=== PATIENT | female | born 1955 | race Caucasian/White ===

== ENCOUNTER → 2023-12-02 15:00 | Outpatient (BNV) | payer MEDICARE, SELFPAY | PROVIDERS: PCP Internal Medicine; Referring Provider Internal Medicine; Visit Provider Internal Medicine | DX: D69.6 Thrombocytopenia, unspecified (principal); D64.9 Anemia, unspecified | CPT/HCPCS: 99204; 99214; G2211 ==

== ENCOUNTER 2024-02-06 11:45 | Day surgery (SDC) | payer MEDICARE, SELFPAY ==
--- OUTSIDE RECORDS SUMMARY | 2024-02-05 19:26 | XMS_ITS | Continuity of Care Document ---
Author Organization [facility] Address [address] [place] [address]- Care Team Providers Care Electron Gun Inspector Name Role Phone Josias Estrada MD Primary Care Physician Encounter [facility] [id number] Date(s): 10/16/23 - 01/30/24 [facility] [address] [place] [id number] Discharge Disposition: A-D/C Home Attending Physician: Gavin Lua MD Admitting Physician: Gavin Lua MD Referring Physician: Josias Estrada MD Encounter Type: Disch Recurring OP Allergies, Adverse Reactions, Alerts Substance Criticality Severity Reaction Reaction Severity Status amoxicillin Active Medications albuterol CFC free 90 mcg/inh inhalation aerosol 2, puffs, Inhalation, 4 times a day, PRN, # 18 Gm, Refills 0, Tot. Refills 0, Maintenance, 01/29/24 1:34:00 PM EST, Aerosol, Route to Pharmacy Electronically, [id number], [facility]/pharmacy #[id number], 157, cm, 01/29/24 11:23:00 EST, Height, 89.5, kg, 01/29/24 11:23:00 EST, Dry Weight Start Date: 01/29/24 Status: Ordered Quantity: 18.0 Unit: g Repeat number: 1 amLODIPine 5 mg oral tablet 10 mg, 2, tablet, By Mouth, Daily, # 30 tablet, Refills 0, Maintenance, 06/22/18 10:03:28 AM EDT Start Date: 4/28/19 Status: Ordered Quantity: 30.0 Unit: tablet Repeat number: 1 cefpodoxime 200 mg oral tablet 1 tablet = 200 mg, By Mouth, Every 12 hours, for 7 days, # 14 tablet, 0 Refills, Acute 02/05/24 1:34:00 PM EST, 01/29/24 1:34:00 PM EST, Tablet, [facility]/pharmacy #[id number], Partial fill upon patient request if the prescription is for a schedule II opioid drug., 157, cm, 01/29/24 11:23:00 EST, Height, 89.5, kg, 01/29/24 11:23:00 EST, Dry Weight Start Date: 01/29/24 Stop Date: 02/05/24 Status: Ordered Quantity: 14.0 Unit: tablet Repeat number: 1 codeine-guaifenesin 10 mg-100 mg/5 mL oral syrup 10 mL, By Mouth, Every 4 hours, PRN for cough, # 60 mL, 0 Refills, Maintenance, 01/26/24 1:07:00 PM EST, Syrup, [facility]/pharmacy #[id number], Partial fill upon patient request if the prescription is for a schedule II opioid drug., 10 mL By Mouth Every 4 hours,PRN:for cough, 158, cm, 01/26/24 9:52:00 EST, Height, 85.2, kg, 01/26/24 9:52:00 EST, Dry Weight Start Date: 01/26/24 Status: Ordered Quantity: 60.0 Unit: mL Repeat number: 1 codeine-guaifenesin 7.5 mg-225 mg/5 mL oral liquid 2.5 mL, By Mouth, Every 6 hours, PRN for cough, # 60 mL, 0 Refills, Maintenance, 01/26/24 12:12:00 PM EST, Liquid, [facility]/pharmacy #[id number], Partial fill upon patient request if the prescription is for a schedule II opioid drug., 2.5 mL By Mouth Every 6 hours,PRN:for cough, 158, cm, 01/26/24 9:52:00 EST, Height, 85.2, kg, 01/26/24 9:52:00 EST, Dry Weight Start Date: 01/26/24 Status: Ordered Quantity: 60.0 Unit: mL Repeat number: 1 levothyroxine 0.075 mg oral tablet 0 Refills, Maintenance, 06/22/18 10:02:06 AM EDT Start Date: 06/22/18 Status: Ordered Repeat number: 1 losartan 100 mg oral tablet 1 tablet = 100 mg, By Mouth, Daily, # 30 tablet, 0 Refills, Maintenance, 06/22/18 10:01:38 AM EDT, Tablet Start Date: 06/22/18 Status: Ordered Quantity: 30.0 Unit: tablet Repeat number: 1 metFORMIN 500 mg oral tablet 1 tablet = 500 mg, By Mouth, 2 times a day, # 60 tablet, 0 Refills, Maintenance, 06/22/18 10:03:01 AM EDT, Tablet Start Date: 06/22/18 Status: Ordered Quantity: 60.0 Unit: tablet Repeat number: 1 simvastatin 20 mg oral tablet 20 mg, 1, tablet, By Mouth, Daily at bedtime, # 30 tablet, Refills 0, Maintenance, 06/22/18 10:01:48AM EDT Start Date: 06/22/18 Status: Ordered Quantity: 30.0 Unit: tablet Repeat number: 1 Zithromax Z-Rdoolfo 250 mg oral tablet 250, By Mouth, Daily, as directed on package labeling, # 6 tablet, 0 Refills, Maintenance, 01/26/24 12:10:00 PM EST, [facility]/pharmacy #[id number], Partial fill upon patient request if the prescription is for a schedule II opioid drug., 158, cm, 01/26/24 9:52:00 EST, Height, 85.2, kg, 01/26/24 9:52:00 EST, DryWeight Start Date: 01/26/24 Status: Ordered Quantity: 6.0 Unit: tablet Repeat number: 1 Problem List Condition Confirmation Course Effective Dates Status Health St atus Informant Obese class II Confirmed Active Social History Social History Type Response Smoking Status Former smoker, quit more than 30 days ago entered on: 01/26/24 Sex Sex Representation Female (finding) Patient Care team information Care Team Personnel Name: Josias Estrada MD Position: [facility] Physician - Primary Care Member Role: PCP Address: [address] [place] [address], [address] [facility] [place], [place] [address] Telecom: Name: Floridalma Kraft MD, Gavin Hatch Position: [facility] Physician - Oncology Med Service: Hematology & Oncology Member Role: Admitting Physician Address: [address] [place] [address] Hem/[place] [address]- Telecom: Care Team Related Persons Name: OSCAR FITZPATRICK Insurance Providers Guarantor name: BRO FITZPATRICK Health Plan Information #: 2 Payer: [facility] Active [address] SUP Member Number: [id number] Policy Number: NA Group Number: NA Health Plan Information #: 1 Payer: MEDICARE PART B OUTPT Member Number: [id number] Policy Number: NA Group Number: NA
[2024-02-06] VITALS (12 sets, daily range): BP systolic 113–166; BP diastolic 37–64; PULSE 67–75; RESP 10–22; TEMP 36.2–36.7; O2SAT 95–100; BMI 33.5
--- NOTE | ~2024-02-06 | CT_ITS ---
Pancytopenia. PROCEDURES: 1. Limited preprocedure CT of the pelvis. Permanent images saved in PACS. 2. 11 g bone marrow core biopsy of the right posterior iliac spine 3. 11 g bone marrow aspirate of the right posterior iliac spine CLINICIANS: Korey Antunez PA-C MEDICATIONS: -Versed 1.5 mg, Fentanyl 75 mcg, and lidocaine 1% 10 mL SQ -Antibiotics: None -For additional details, please see nursing flowsheet. COMPLICATIONS: None ESTIMATED BLOOD LOSS: < 5 ml CONTRAST: None SPECIMENS: 11 g core placed in formalin. Bone marrow aspirate placed in EDTA and sodium heparin tubes MODERATE SEDATION TIME: 16 min PROCEDURE NOTE: The procedure, risks, benefits, and alternatives were carefully explained to the patient and written informed consent was obtained. The patient was placed prone on the CT table. A timeout was performed. A limited CT of the pelvis was performed to localize the posterior iliac spine and choose appropriate needle entry and trajectory. The patient was prepped and draped in usual sterile fashion. The skin, subcutaneous tissues, and periosteum were anesthetized with lidocaine. Under CT guidance, an 11-gauge bone marrow biopsy needle was advanced into the posterior iliac spine, with the tip positioned slightly cephalad. An 11-gauge core biopsy of the bone marrow was performed and was placed in formalin. Next, the 11-gauge bone marrow biopsy needle was then advanced into the posterior iliac spine, under CT guidance, with the tip positioned slightly caudal. A bone marrow aspiration was performed. The specimens were placed in the provided EDTA and sodium heparin tubes. The needle was removed. A dry dressing was applied and secured with Tegaderm. There were no immediate complications. The patient was stable after the procedure and was transferred to the post anesthesia care unit. The procedure was done under moderate sedation with a dedicated nurse for monitoring of vital signs. CT/CT biopsy asp core bone marrow Impression: CT-guided bone marrow biopsy and aspiration. This procedure was performed by Korey Antunez PA-C and supervised by Dr. Emerson. Electronically signed by: Chadd Ambrosio MD 02/11/2024 05:13 PM [facility]
[2024-02-06 12:57] LABS: MANUAL DIFF FLAG NO
[2024-02-06 12:59] LABS: Basophils Percent Auto 0.4 % (0-2); Eosinophils Absolute Auto 0.1 X10*3/uL (0.0-0.4); Eosinophils Percent Auto 1.5 % (0-4); Hematocrit 28.5 % (37.0-47.0); Hemoglobin 10.2 g/dl (12.0-16.0); Imm Gran Abs Auto 0.02 X10*3/uL (0.00-0.03); Imm Gran Pct Auto 0.4 % (0.0-0.4); Lymphocytes Percent Auto 22.2 % (20-40); Mean Corpuscular HGB Conc 35.8 g/dl (31.0-35.0); Mean Corpuscular Hemoglobin 32.5 pg (27.0-33.0); Mean Corpuscular Volume 90.8 fL (80.0-98.0); Mean Platelet Volume 9.2 fL (9.4-12.3); Monocytes Absolute Auto 0.2 X10*3/uL (0.1-1.2); Monocytes Percent Auto 3.5 % (2-11); Neutrophils Absolute Auto 3.3 x10*3/uL (2.0-8.3); Platelet Count 149 X10*3/uL (160-400); Red Blood Count 3.14 X10*6/uL (4.20-5.50); White Blood Count 4.5 X10*3/uL (4.8-10.8)
[2024-02-06 13:14] LABS: Glucose, Whole Blood 101 mg/dL (60-115)
--- NOTE | 2024-02-06 13:15 | MHC.SHP ---
Pre-Procedural Eval Section A - 24 Hr Update-Section A only Date of Service: 02/06/24 Section B - Complete if H&P > 30 days Chief Complaint: aspirate and biopsy bone marrow--pancytopenia Details of Present Illness: 68 y/o female with pancytopenia. Oncology requests a bone marrow biopsy Relevant Family History (Specify if Yes): No Relevant Social History: None Present Medications: see Short Stay Collaborative assessment Medical History: Significant History (DM, Anemia) History of Previous Operations: No relevant previous surgery Allergies: Allergies Allergy/AdvReac Type Severity Reaction Status Date / Time amoxicillin Allergy Rash Verified 02/03/24 10:08 Review of Systems Sugical H&P ROS: Negative: Constitution, Cardiovascular and Respiratory and Yes, Specify: Psychiatric (anxiety) Exam Surgical H&P Exam: Normal: Heart, Normal: Lungs, Normal: Skin and Normal: Neurological Plan 68 y/o female with pancytopenia -Bone marrow biopsy Time Spent With Patient Time: Total time managing care of this patient today ____ minutes.
[2024-02-06] MEDS: Midazolam HCl 5 MG/ML VIAL 1 MG IVPUSH (13:41)
[2024-02-06] MEDS: fentaNYL citrate/PF 100 MCG/2 ML VIAL 50 MCG IVPUSH (13:41)
[2024-02-06] MEDS: fentaNYL citrate/PF 100 MCG/2 ML VIAL 25 MCG IVPUSH (13:53)
[2024-02-06] MEDS: Midazolam HCl 5 MG/ML VIAL IVPUSH (13:53)
[2024-02-06 14:29] LABS: Bone Marrow SEE SEPARATE REPORT
== END 2024-02-06 14:55 | disposition home or self-care (01) ==
LOC: HO.SSS 11:46
PROVIDERS: Pathology Anatomic Pathology & Clinical Pathology; Physician Assistant Surgical; PCP Internal Medicine; Visit Provider Internal Medicine
PROC: (CPT 38221; principal; 2024-02-06 13:30)
DX: D61.818 Other pancytopenia (principal); I13.10 Hypertensive heart and chronic kidney disease without heart failure, with stage 1 through stage 4 chronic kidney disease, or unspecified chronic kidney disease; E11.22 Type 2 diabetes mellitus with diabetic chronic kidney disease; N18.2 Chronic kidney disease, stage 2 (mild); E11.40 Type 2 diabetes mellitus with diabetic neuropathy, unspecified; R80.1 Persistent proteinuria, unspecified; M79.652 Pain in left thigh; M79.651 Pain in right thigh; D64.9 Anemia, unspecified; R70.1 Abnormal plasma viscosity; D69.6 Thrombocytopenia, unspecified; K75.81 Nonalcoholic steatohepatitis (NASH); Z79.84 Long term (current) use of oral hypoglycemic drugs; Z79.899 Other long term (current) drug therapy; Z88.1 Allergy status to other antibiotic agents; Z87.891 Personal history of nicotine dependence
CPT/HCPCS: 36415; 38222; 82947; 85025; 88184; 88185; 88237; 88264; 88305; 88311; 88313; 99152; J2003; J2250; J2310; J3010

== ENCOUNTER → 2024-02-06 12:45 | Outpatient (BNV) | payer MEDICARE, MEDICAID, SELFPAY | PROVIDERS: PCP Internal Medicine; Visit Provider Physician Assistant Surgical | DX: D61.818 Other pancytopenia (principal) | CPT/HCPCS: 38222; 77012 ==

== ENCOUNTER 2024-06-17 13:48 | Outpatient (REF) | payer MEDICARE, MEDICAID, SELFPAY ==
--- OUTSIDE RECORDS SUMMARY | 2024-06-17 16:30 | XMS_ITS | Clinical Summary ---
Author Organization [facility] Address [address] [place] [address] Care Team Providers Care Traveling Sales Executive Name Role Phone Josias Estrada MD Primary Care Provider [phone] Allergies Active Allergy Reactions Criticality Noted Date Comments Benazepril 06/29/2022 Medications No known medications Active Problems No known active problems Social History Tobacco Use Types Packs/Day Years Used Date Smoking Tobacco: Former Cigarettes Smokeless Tobacco: Never Tobacco Cessation:Counseling Given: Not Answered Alcohol Use Standard Drinks/Week Comments Yes 6 (1 standard drink = 0.6 oz pur e alcohol) Sex and Gender Information Value Date Recorded Sex Assigned at Female 04/13/2022 4:03 PM EST Gender Identity Not on file Sexual Orientation Not on file Job Start Date Occupation Industry Not on file Not on file Not on file Last Filed Vital Signs Vital Sign Reading Time Taken Comments Blood Pressure 136/46 06/29/2022 11:27 AM EDT Pulse 68 06/29/2022 11:27 AM EDT Temperature 36.8 ??C (98.3 ??F) 06/29/2022 11:27 AM E DT Respiratory Rate - - Oxygen Saturation 96% 06/29/2022 11:27 AM EDT Inhaled Oxygen Concentration - - Weight 89.1 kg (196 lb 6.4 oz) 06/29/2022 11:27 AM EDT Height 157.5 cm (5' 2 ) 06/29/2022 11:27 AM EDT Body Mass Index 35.92 06/29/2022 11:27 AM EDT Plan of Treatment Health Maintenance Due Date Last Done Comments Hepatitis C Screening 1956 Depression Screening 1968 Preventative Health Evaluation 1974 DTap / Tdap / Td (1 - Tdap) 08/19/1975 Colon Cancer Screening (Colonoscopy) 2001 Breast Cancer Screening (Mammogram) 2006 Shingrix-Zoster Vaccine (1 o f 2) 2006 Fall Risk Assessment 2021 Osteoporosis Screening (DEXA Scan) 2021 Pneumococcal Vaccine (1 of 1 - PCV) 2021 COVID-19 Vaccine (3 - 2023-2 5 season) 2023 07/10/2020, 06/19/2020 Influenza Vaccine (#1) 2023 RSV Adult > 60+ Yrs or (1 - 1-dose 75+ series) 08/19/2031 Hepatitis B Vaccines Aged Out No long er eligible based on patient's age to complete this topic RSV Ped < 20 months Aged Out No longe r eligible based on patient's age to complete this topic Care Teams Traveling Sales Executive Relationship Specialty Start Date End Date Josias Estrada MD [address] [place] [address] [address] [place] [address] PCP - General Geriatric Medicine 04/13/22
== END 2024-06-17 13:49 | disposition home or self-care (01) ==
LOC: HO.MAMMO 13:48
PROVIDERS: PCP Internal Medicine; Visit Provider Internal Medicine
DX: N63.25 Unspecified lump in the left breast, overlapping quadrants (principal)
CPT/HCPCS: 76642; 77062; 77066

== ENCOUNTER → 2024-06-17 13:51 | Outpatient (BNV) | payer MEDICARE, MEDICAID, SELFPAY | PROVIDERS: PCP Internal Medicine; Visit Provider Internal Medicine | DX: N63.21 Unspecified lump in the left breast, upper outer quadrant (principal); R92.1 Mammographic calcification found on diagnostic imaging of breast | CPT/HCPCS: 76642; 77066; G0279 ==

== ENCOUNTER 2024-07-02 08:30 | Outpatient (AMB) | payer MEDICARE, MEDICAID, SELFPAY ==
--- NOTE | 2024-07-02 08:33 | A.OFFVIS_ITS ---
Vital Signs 07/02/24 08:39 Height 5 ft 2 in Weight 194 lb BMI 35.5 BP 153/75 H Blood Pressure Location Rt brachial Position Sitting Pulse 75 Intake Visit Reasons: LT BR STEREO BX 1:00 CALS.& USBX FOR 11:00 MASS Intake Note: Patient here for Lt br st bx at 1 o'clock calcification and US bx for 11o'clock mass. Patient c/o: feels bump on Lt br. Tender at times. No personal or family hx of breast CA. Bx procedure scheduled for 10am. Finishing Range Feeder Required: No Accompanied by: Spouse Allergies amoxicillin Allergy (Verified 07/02/24 08:38) Rash Medication List - Last Reconciled 07/02/24 by Andrea Kirk MD albuterol sulfate 90 mcg/actuation 2 puffs inhalation Q4H PRN levothyroxine 75 mcg PO DAILY losartan-hydrochlorothiazide 100-25 mg 1 tab PO DAILY metformin 1,000 mg PO BID simvastatin 20 mg PO BEDTIME HPI HPI LT BR STEREO BX 1:00 CALS.& USBX FOR 11:00 MASS: Details: [age] year old female referred for a left breast mass. She says she felt a lump on her left breast about a month ago. She mentioned this to her oncologist who sees her for anemia, and she was ordered to have a mammogram which showed 2 masses on the left breast . She underwent targeted ultrasound and mammogram showing the palpable mass at the 11 o'clock position, 5 cm from the nipple measuring 15 x 10 x 9 mm. An ultrasound biopsy was recommended for this lump. There was also note of grouped amorphous calcifications in the upper outer quadrant of the left breast and a stereotactic biopsy was recommended for this. Her menarche was the age of 15. Her 1st was the age of 25. She had 2 pregnancies. She had menopause in her early 50s She denies a family history of breast cancer She says that she had never had any mammogram before . 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 failure, with stage 1 through stage 4 chronic kidney disease, or unspecified chronic kidney disease Hypothyroidism, unspecified Nonalcoholic steatohepatitis (MCKENNA) Type 2 diabetes mellitus with diabetic neuropathy, unspecified Refractory anemia, 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 Morbid (severe) obesity due to excess calories Generalized anxiety disorder Fatty liver Chronic kidney disease, stage II (mild) Persistent microalbuminuria associated with type 2 diabetes mellitus Type 2 diabetes mellitus Surgical History H/O shoulder surgery Social History Household Members: Spouse Housing: House Patient Tobacco Use Status: Former Tobacco user Tobacco use type: Cigarette service: No Current occupational status: retired Gender identity: Female Review of Systems Const Denies chills and Denies fever(s) Card Denies chest pain, Denies dyspnea and Denies dyspnea on exertion Resp Denies cough, Denies dyspnea and Denies dyspnea on exertion GI Denies hematochezia and Denies change in bowel habits Denies hematuria Musc Denies back pain and Denies limited range of motion Neuro Denies focal weakness and Denies convulsions Psych Denies depression and Denies mood swings Physical Exam Vital Signs: Last Vital Signs Pulse 75 07/02/24 08:39 BP 153/75 H 07/02/24 08:39 BMI result Body Mass Index 35.5 Const General: comfortable and no acute distress Orientation/consciousness: patient oriented x3 Neck Neck: Yes no lymphadenopathy Chest Other: Left breast with note of above all mass, well-defined, mobile, about 1.5 cm in widest dimension 11 o'clock position. No other palpable masses are noted in the left breast. There were no masses palpable on the right breast. There was no axillary lymphadenopathy. Resp Auscultation: clear to auscultation bilaterally Cardio Rhythm: regular rhythm GI Palpation (GI): Soft to palpation, nontender and no guarding Neuro General: patient oriented x3 Assessment & Plan Assessment & Plan (1) Left breast mass: Code(s): N63.20 - Unspecified lump in the left breast, unspecified quadrant Category: Medical Plan: She has a palpable mass at the 11 o'clock position of the left breast and grouped amorphous calcifications in the upper outer quadrant of the left breast. An ultrasound biopsy was recommended for the palpable mass and a stereotactic biopsy was recommended for the calcifications I explained to her the technique of this procedures I will see her again next week to discuss the path report. Orders: Orders US breast ndl core biopsy LT 07/01/24 N63.20 - Unspecified lump in the left breast, unspecified quadrant MM stereotactic biopsy LT 07/01/24 N63.20 - Unspecified lump in the left breast, unspecified quadrant Coding Level of Care Code New Pt Level 3 (84306) Diagnoses Left breast mass N63.20
[2024-07-02 08:39] VITALS: BP 153/75; PULSE 75; BMI 35.5
--- OUTSIDE RECORDS SUMMARY | 2024-07-02 08:44 | XMS_ITS | Clinical Summary ---
Author Organization [facility] Address [address] [place] [address] Care Team Providers Care Computer Game Programmer Name Role Phone Josias Estrada MD Primary Care Provider [phone] Allergies Active Allergy Reactions Criticality Noted Date [...] age to complete this topic Care Teams Computer Game Programmer Relationship Specialty Start Date End Date Josias Estrada MD [address] [place] [address] [address] [place] [address] PCP - General Geriatric Medicine 04/13/22
== END 2024-07-02 08:53 | disposition home or self-care (01) ==
LOC: HO.HGS 08:31
PROVIDERS: PCP Internal Medicine; Visit Provider Surgery
DX: N63.20 Unspecified lump in the left breast, unspecified quadrant (principal)
CPT/HCPCS: 99203

== ENCOUNTER 2024-07-02 09:03 | Outpatient (REF) | payer MEDICARE, MEDICAID, SELFPAY ==
--- NOTE | ~2024-07-02 | US_ITS ---
PROCEDURE: ULTRASOUND-GUIDED LEFT BREAST BIOPSY CLINICAL INFORMATION: Irregular mass in the left breast at 11:00 5 cm from the nipple. COMPARISON: [facility] on PACS. TECHNIQUE: The details of the procedure, as well as the risks, benefits, and alternatives to the procedure were explained to the patient in detail and all of her questions were answered, after which, written informed consent was obtained. PROCEDURE: Prior to the procedure, sonography revealed a solid irregular mass at 11:00 5 cm from the nipple.. A time-out was performed, the lesion intended for biopsy was targeted and the skin of the left breast was then prepped and draped in the usual sterile fashion. Using sonographic guidance, sterile technique, and 1% lidocaine without epinephrine for local anesthesia, a total of 5 cores were obtained through the targeted area with a 14-gauge biopsy device. At the completion of tissue sampling, a single butterfly metallic clip was deposited at the biopsy site. An appropriate sample was obtained. The postprocedure 2-view direct digital mammogram reveals satisfactory positioning of the biopsy clip. The patient tolerated the procedure well and, after assuring adequate hemostasis, was discharged in good condition after reviewing postbiopsy breast care instructions. Final pathology results are pending. US/US breast ndl core biopsy LT IMPRESSION: 1. Uncomplicated sonographically-guided core biopsy of the left breast. The 2-view direct digital postprocedure mammogram reveals satisfactory positioning of the biopsy clip. 2. Final pathology results are pending. A separate report with final recommendations will be issued once these results are made available. Electronically signed by: Khushi Mccormick DO 07/02/2024 10:47 AM EDT
--- NOTE | ~2024-07-02 | MM_ITS ---
EXAMINATION: STEREOTACTICALLY-GUIDED LEFT BREAST BIOPSY CLINICAL INFORMATION: Grouped calcifications upper outer quadrant middle depth COMPARISON: [facility] on PACS. INFORMED CONSENT: After the details of the procedure, as well as the risks (including, but not limited to, bleeding, hematoma formation, and infection), benefits and alternatives (including doing nothing, short-interval follow up, and surgery) to the procedure were explained to the patient in detail and all of her questions were answered, informed written consent was obtained. TECHNIQUE/FINDINGS: A timeout was performed. The lesion intended for biopsy was identified stereotactically and targeted. The skin of the left breast was then cleansed with sterile solution. Using stereotactic guidance, aseptic technique, and 1% lidocaine with and without epinephrine for local anesthesia, a total of 12 cores were obtained through the targeted area with a 9-gauge vacuum-assisted Eviva core biopsy device from a superior approach. Specimen radiography reveals the targeted calcifications in the sampled tissue. At the completion of tissue sampling, a single top hat-shaped metallic clip was deposited at the biopsy site. Adequate sampling was achieved. The postprocedure 2-view direct digital mammogram reveals satisfactory positioning of the biopsy clips. The patient tolerated the procedure well and, after assuring adequate hemostasis, was discharged in good condition after reviewing postbiopsy breast care instructions. Final pathology results are pending. MM/MM stereotactic biopsy LT IMPRESSION: 1. Uncomplicated stereotactically-guided core biopsy of the left breast. The 2-view direct digital postprocedure mammogram reveals satisfactory positioning of the biopsy clips from ultrasound biopsy left breast and steretactactic biopsy same day. 2. Final pathology results are pending. A separate report with final recommendations will be issued once these results are made available. Electronically signed by: Khushi Mccormick DO 07/02/2024 10:47 AM EDT
--- OUTSIDE RECORDS SUMMARY | 2024-07-02 09:32 | XMS_ITS | Clinical Summary ---
Author Organization [facility] Address [address] [place] [address] Care Team Providers Care Venetian Blind Worker Name Role Phone Josias Estrada MD Primary Care Provider [phone] Allergies Active Allergy Reactions Criticality Noted Date [...] age to complete this topic Care Teams Venetian Blind Worker Relationship Specialty Start Date End Date Josias Estrada MD [address] [place] [address] [address] [place] [address] PCP - General Geriatric Medicine 04/13/22
[2024-07-02] MEDS: Sodium Bicarbonate 8.4% 50 MEQ/50 ML VIAL SUBCUT (10:34)
[2024-07-02] MEDS: Lidocaine HCl 1 % MPF 5 ML VIAL 14 ML SUBCUT (10:36)
[2024-07-02] MEDS: Lidocaine HCl 1%/Epi 1:100,000 10 ML VIAL 18 ML SUBCUT (10:38)
== END 2024-07-02 09:04 | disposition home or self-care (01) ==
LOC: HO.MAMMO 09:03
PROVIDERS: Absent Provider Internal Medicine; PCP Internal Medicine; Visit Provider Surgery
DX: N63.22 Unspecified lump in the left breast, upper inner quadrant (principal); N63.21 Unspecified lump in the left breast, upper outer quadrant; D05.12 Intraductal carcinoma in situ of left breast
CPT/HCPCS: 19081; 19083; 88305; 88341; 88342; 88360; 99202; A4648; J2003; J2004

== ENCOUNTER → 2024-07-02 10:00 | Outpatient (BNV) | payer MEDICARE, MEDICAID, SELFPAY | PROVIDERS: Absent Provider Internal Medicine; PCP Internal Medicine; Visit Provider Internal Medicine | DX: D05.12 Intraductal carcinoma in situ of left breast (principal); R92.1 Mammographic calcification found on diagnostic imaging of breast | CPT/HCPCS: 19081; 19083; 77065 ==

== ENCOUNTER 2024-07-09 14:02 | Outpatient (AMB) | payer MEDICARE, MEDICAID, SELFPAY ==
--- NOTE | 2024-07-09 14:14 | A.OFFVIS_ITS ---
Vital Signs 07/09/24 14:15 Height 5 ft 2 in Weight 195 lb BMI 35.7 BP 132/60 Blood Pressure Location Rt brachial Position Sitting Pulse 62 Intake Visit Reasons: s/p needle core bx Intake Note: Patient here s/p left breast mass needle core bx 11:00 o'clock. Patient c/o: tenderness, bruising along bx site. Steel Post Installer Supervisor Required: No Accompanied by: Spouse Allergies amoxicillin Allergy (Verified 07/09/24 14:18) Rash benazepril Allergy (Verified 07/24/24 14:51) Unknown indapamide Allergy (Verified 07/24/24 14:51) Unknown Sulfa (Sulfonamide Antibiotics) Allergy (Verified 07/24/24 14:51) Unknown [facility] Medical History (Updated 07/24/24 @ 14:45 by Symone Guzman RN) Anemia Breast cancer, left Left breast mass Hypertensive heart and chronic kidney disease without heart failure, with stage 1 through stage 4 chronic kidney disease, or unspecified chronic kidney disease Hypothyroidism, unspecified Nonalcoholic steatohepatitis (MCKENNA) Type 2 diabetes mellitus with diabetic neuropathy, unspecified Refractory anemia, 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 Morbid (severe) obesity due to excess calories Generalized anxiety disorder Fatty liver Chronic kidney disease, stage II (mild) Persistent microalbuminuria associated with type 2 diabetes mellitus Type 2 diabetes mellitus Surgical History H/O shoulder surgery Social History Household Members: Spouse Housing: House Are you a primary career development coordinator to a significant other at home: No Do you presently have visiting nurse or other home services: No Patient Tobacco Use Status: Former Tobacco user Tobacco use type: Cigarette service: No Current occupational status: retired Gender identity: Female Physical Exam Vital Signs: Last Vital Signs Pulse 62 07/09/24 14:15 BP 132/60 07/09/24 14:15 BMI result Body Mass Index 35.7 Assessment & Plan Assessment & Plan (1) Breast cancer, left: Code(s): C50.912 - Malignant neoplasm of unspecified site of left female breast Category: Medical Plan: She is status post stereotactic biopsy of the left breast mass at the 11 o'clock position. 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 I explained this path report to her. I told her that we can treat this with 2 surgical options. One is to proceed with lumpectomy which may be followed by radiation to the whole breast. The other option is to do a mastectomy. I explained to her the technique of each procedure. I reviewed the risks including but not limited to bleeding, infections, hematoma, flap necrosis with a mastectomy, inherent under anesthesia risks. Dr. Reed had discussed her case with me. She had recommended proceeding a sentinel biopsy as the path report states that evaluation of the whole lesion is necessary to assess for invasion. The patient states that she would prefer to undergo a lumpectomy. She understands this also there of needing further surgeries for this. She will therefore be scheduled for lumpectomy of the left breast with sentinel biopsy. Her was with her during the visit. Orders: Orders NM sentinel node w imaging 07/09/24 C50.912 - Malignant neoplasm of unspecified site of left female breast Coding Level of Care Code Est Pt Level 4 (02173) Diagnoses Breast cancer, left C50.912
[2024-07-09 14:15] VITALS: BP 132/60; PULSE 62; BMI 35.7
--- OUTSIDE RECORDS SUMMARY | 2024-07-09 14:45 | XMS_ITS | Clinical Summary ---
Author Organization [facility] Address [address] [place] [address] Care Team Providers Care Cylinder Press Operator Apprentice Name Role Phone Josias Estrada MD Primary Care Provider [phone] Allergies Active Allergy Reactions Criticality Noted Date [...] age to complete this topic Care Teams Cylinder Press Operator Apprentice Relationship Specialty Start Date End Date Josias Estrada MD [address] [place] [address] [address] [place] [address] PCP - General Geriatric Medicine 04/13/22
== END 2024-07-09 14:46 | disposition home or self-care (01) ==
LOC: HO.HGS 14:02
PROVIDERS: PCP Internal Medicine; Visit Provider Surgery
DX: C50.912 Malignant neoplasm of unspecified site of left female breast (principal)
CPT/HCPCS: 99214

== ENCOUNTER → 2024-07-09 14:02 | Outpatient (BNVA) | payer MEDICARE, SELFPAY | PROVIDERS: PCP Internal Medicine; Visit Provider Surgery | DX: D05.82 Other specified type of carcinoma in situ of left breast (principal) | CPT/HCPCS: 99212 ==

== ENCOUNTER 2024-07-21 10:51 | Outpatient (REF) | payer MEDICARE, SELFPAY ==
--- NOTE | ~2024-07-21 | MM_ITS ---
EXAMINATION: MM MAMMOGRAM GUIDED RFID LOCALIZATION BREAST, LEFT CLINICAL INFORMATION: Left breast mass, 11:00 axis, 5 cm from the nipple, for localization. 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 Marked by butterfly shaped clip. COMPARISON: 07/02/2024, 06/17/2024. TECHNIQUE NEEDLE LOC: Proper informed consent is obtained from the patient after discussion of the procedure, potential risks and complications, and alternatives including declining the procedure today. Patient was given an opportunity for questions. The patient appeared to understand. The patient consented to the procedure and signed the consent form. GUIDANCE: Digital mammography. APPROACH: Cranio-caudal. TARGET: Butterfly shaped biopsy clip. ANESTHESIA: carbonated lidocaine 1%: 3 mL. LOCALIZATION SYSTEM: [employer] LOCallizer Wire-Free Guidance System with 12g needle applicator. RADIOFREQUENCY TAG: ID # [id number] DERMATOTOMY: Single 1 mm skin-davida dermatotomy performed. RF Tag ID confirmed with LOCalizer Guidance System prior to placement. The skin is prepped and local anesthesia administered. The needle is positioned and RFID tag deployed. Final images demonstrate the LOCalizer RF tag to reside immediately adjacent to the butterfly shaped biopsy clip. The patient tolerated the procedure well and had no immediate complications. Dressing placed and home instructions reviewed. MM/MM RF Tag device LT IMPRESSION: -Status post left breast RFID localization. -Final CC and ML images were labeled appropriately for OR reference Electronically signed by: Neftali Kerns MD 07/21/2024 12:04 PM EDT
--- OUTSIDE RECORDS SUMMARY | 2024-07-21 11:40 | XMS_ITS | Clinical Summary ---
Author Organization [facility] Address [address] [place] [address] Care Team Providers Care Dry Wall Nailer Name Role Phone Josias Estrada MD Primary Care Provider [phone] Allergies Active Allergy Reactions Criticality Noted Date [...] age to complete this topic Care Teams Dry Wall Nailer Relationship Specialty Start Date End Date Josias Estrada MD [address] [place] [address] [address] [place] [address] PCP - General Geriatric Medicine 04/13/22
[2024-07-21] MEDS: Lidocaine HCl 1 % 20 ML VIAL 3 ML SUBCUT (11:43)
[2024-07-21] MEDS: Sodium Bicarbonate 8.4% 50 MEQ/50 ML VIAL SUBCUT (11:46)
== END 2024-07-21 10:52 | disposition home or self-care (01) ==
LOC: HO.MAMMO 10:51
PROVIDERS: Absent Provider Internal Medicine; PCP Internal Medicine; Visit Provider Surgery
DX: C50.912 Malignant neoplasm of unspecified site of left female breast (principal)
CPT/HCPCS: 19281; C1819; J2003

== ENCOUNTER → 2024-07-21 11:00 | Outpatient (BNV) | payer MEDICARE, SELFPAY | PROVIDERS: Absent Provider Internal Medicine; PCP Internal Medicine; Visit Provider Radiology Diagnostic Radiology | DX: D05.12 Intraductal carcinoma in situ of left breast (principal) | CPT/HCPCS: 19281 ==

== ENCOUNTER 2024-07-28 06:51 | Day surgery (SDC) | payer MEDICARE, SELFPAY ==
--- OUTSIDE RECORDS SUMMARY | 2024-07-10 11:42 | XMS_ITS | Clinical Summary ---
Author Organization [facility] Address [address] [place] [address] Care Team Providers Care Woodyard Crane Operator Name Role Phone Josias Estrada MD Primary Care Provider [phone] Allergies Active Allergy Reactions Criticality Noted Date [...] age to complete this topic Care Teams Woodyard Crane Operator Relationship Specialty Start Date End Date Josias Estrada MD [address] [place] [address] [address] [place] [address] PCP - General Geriatric Medicine 04/13/22
[2024-07-24 14:35] VITALS: BMI 35.7
[2024-07-24 15:03] VITALS: BMI 35.8
--- NOTE | 2024-07-27 11:55 | P.CONAN_ITS ---
Documented by User: Lisette Salmon NP 07/27/24 11:57 HPI - Anesthesia Eval Consult details Narrative: 68yo F for Left Breast Lumpectomy w/LOCalizer,with LEFT Axillary Sentinal Node Biopsy Follows [facility] [place] for anemia PMFSH Active Problems Active Problems: All Active Problems Anemia (Acute) Breast cancer, left (Acute) Left breast mass (Acute) Past Medical History Medical History Anemia Breast cancer, left Left breast mass Hypertensive heart and chronic kidney disease without heart failure, with stage 1 through stage 4 chronic kidney disease, or unspecified chronic kidney disease Hypothyroidism, unspecified Nonalcoholic steatohepatitis (MCKENNA) Type 2 diabetes mellitus with diabetic neuropathy, unspecified Refractory anemia, 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 Morbid (severe) obesity due to excess calories Generalized anxiety disorder Fatty liver Chronic kidney disease, stage II (mild) Persistent microalbuminuria associated with type 2 diabetes mellitus Type 2 diabetes mellitus Surgical History Surgical History H/O shoulder surgery Social History Social History Household Members: Spouse Housing: House Are you a primary transitional care manager to a significant other at home: No Do you presently have visiting nurse or other home services: No Patient Tobacco Use Status: Former Tobacco user Tobacco use type: Cigarette Use of substances other than those prescribed or required for medical reasons: No Have you been hit, kicked, punched, or otherwise hurt by someone within the past year? If so, by whom?: No Are you DNR?: No Advance Directives: No Advance Directives Information Provided: Yes Advance Directives on File: No service: No Current occupational status: retired Gender identity: Female Meds Allergies Allergy/AdvReac Type Severity Reaction Status Date / Time amoxicillin Allergy Rash Verified 07/28/24 07:24 benazepril Allergy Unknown Verified 07/28/24 07:24 indapamide Allergy Unknown Verified 07/28/24 07:24 Sulfa (Sulfonamide Allergy Unknown Verified 07/28/24 07:24 Antibiotics) Home Medications ?Medication ?Instructions ?Recorded ?Confirmed ?Last Taken ?Type albuterol sulfate 90 mcg/actuation 2 puff inhalation Q4H PRN prn 12/02/23 07/28/24 Unknown History aerosol inhaler levothyroxine 75 mcg tablet 75 mcg PO DAILY 12/02/23 07/28/24 07/28/24 06:00 History losartan 100 1 tab PO DAILY 12/02/23 07/28/24 Unknown History mg-hydrochlorothiazide 25 mg tablet metformin 1,000 mg tablet 1,000 mg PO BID 12/02/23 07/28/24 Unknown History simvastatin 20 mg tablet 20 mg PO BEDTIME 12/02/23 07/28/24 Unknown History amlodipine 10 mg tablet 10 mg PO DAILY 07/24/24 07/28/24 Unknown History Exam Height,Weight and Vital Signs: Height 5 ft 2 in Weight 88.904 kg Pertinent Lab Results Pertinent Lab Results: Laboratory Tests 06/10/24 10:35 WBC 5.3 Hgb 11.4 L Hct 32.2 L Plt Count 159 L Sodium 139 Potassium 3.6 Chloride 107 Carbon Dioxide 25 BUN 12 Creatinine 0.79 Assessment and Plan Assessment Anesthesia Assessment: Chart Reviewed Documented by User: Daniele Canela MD 07/28/24 14:05 [facility] Past Medical History Medical History Anemia Breast cancer, left Left breast mass Hypertensive heart and chronic kidney disease without heart failure, with stage 1 through stage 4 chronic kidney disease, or unspecified chronic kidney disease Hypothyroidism, unspecified Nonalcoholic steatohepatitis (MCKENNA) Type 2 diabetes mellitus with diabetic neuropathy, unspecified Refractory anemia, 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 Morbid (severe) obesity due to excess calories Generalized anxiety disorder Fatty liver Chronic kidney disease, stage II (mild) Persistent microalbuminuria associated with type 2 diabetes mellitus Type 2 diabetes mellitus Family History Family history of problems with anesthesia: No Surgical History Surgical History H/O shoulder surgery History of Problems with Anesthesia: No Social History Social History Household Members: Spouse Housing: House Are you a primary transitional care manager to a significant other at home: No Do you presently have visiting nurse or other home services: No Patient Tobacco Use Status: Former Tobacco user Tobacco use type: Cigarette Use of substances other than those prescribed or required for medical reasons: No Have you been hit, kicked, punched, or otherwise hurt by someone within the past year? If so, by whom?: No Are you DNR?: No Advance Directives: No Advance Directives Information Provided: Yes Advance Directives on File: No service: No Current occupational status: retired Gender identity: Female Meds Allergies Allergy/AdvReac Type Severity Reaction Status Date / Time amoxicillin Allergy Rash Verified 07/28/24 07:24 benazepril Allergy Unknown Verified 07/28/24 07:24 indapamide Allergy Unknown Verified 07/28/24 07:24 Sulfa (Sulfonamide Allergy Unknown Verified 07/28/24 07:24 Antibiotics) Home Medications ?Medication ?Instructions ?Recorded ?Confirmed ?Last Taken ?Type albuterol sulfate 90 mcg/actuation 2 puff inhalation Q4H PRN prn 12/02/23 07/28/24 Unknown History aerosol inhaler levothyroxine 75 mcg tablet 75 mcg PO DAILY 12/02/23 07/28/24 07/28/24 06:00 History losartan 100 1 tab PO DAILY 12/02/23 07/28/24 Unknown History mg-hydrochlorothiazide 25 mg tablet metformin 1,000 mg tablet 1,000 mg PO BID 12/02/23 07/28/24 Unknown History simvastatin 20 mg tablet 20 mg PO BEDTIME 12/02/23 07/28/24 Unknown History amlodipine 10 mg tablet 10 mg PO DAILY 07/24/24 07/28/24 Unknown History Exam Airway Mallampati Class: II TM Dist: >3cm Neck ROM: Full Denture: Upper Loose/Missing/Broken Teeth: Yes Assessment and Plan Assessment Anesthesia Assessment: Anesthesia Plan Discussed Final Anesthetic Review Family History of Problems with Anesthesia: No History of Problems with Anesthesia: No NPO: Yes ASA Class: III Final Preanesthetic Review: No Changes in Pt Med Stat, Meds/Allgs Chart Reviewed, Consent Obtained/Reviewed and Anes Risks/Benef Reviewed Patient Risk: Intermediate Procedure Risk: Low Anesthetic Plan Anesthetic Plan: GA Disposition: Standard PACU
[2024-07-28] VITALS (13 sets, daily range): BP systolic 107–145; BP diastolic 35–58; PULSE 54–74; RESP 10–16; TEMP 36.1–36.7; O2SAT 93–98
--- NOTE | ~2024-07-28 | MM_ITS ---
Single left breast specimen radiograph demonstrates the tag and the marker clip within the specimen. Electronically signed by: Khushi Mccormick DO 07/28/2024 12:50 PM EDT
--- NOTE | ~2024-07-28 | NM_ITS ---
EXAMINATION: NM LYMPHOSCINTIGRAPHY CLINICAL INFORMATION: Left breast mass. COMPARISON: 07/21/2024, 07/02/2024, 06/17/2024. TECHNIQUE: Left breast lymphoscintigraphy injection was performed . Approximately 0.5 mCi of technetium 99m lymphoseek and 0.8 mL of saline was divided into 4 aliquots of approximately 0.125 mCi, and injected in 4 quadrants around the left breast areola intradermally at 12:00, 3:00, 6:00, and 9:00. Immediate images and delayed images were obtained in AP, oblique and lateral views 25 minutes later. FINDINGS: There is isotope activity in four-quadrant around left breast areola following injection. There are at least 4 areas of isotope activity along the left mid axilla suggestive of multiple lymph nodes. NM/NM sentinel node w imaging IMPRESSION: At least 4 small lymph nodes seen in left mid axilla on right breast lymphoscintigraphy. Thank you for the courtesy of your referral. Electronically signed by: Neftali Kerns MD 07/28/2024 10:27 AM EDT
[2024-07-28] MEDS: Lactated Ringers 1,000 ML 100 ML IVCONT (09:30)
[2024-07-28 09:33] LABS: Glucose, Whole Blood 128 mg/dL (60-115)
--- NOTE | 2024-07-28 11:36 | MHC.SHP ---
Pre-Procedural Eval Section A - 24 Hr Update-Section A only Date of Service: 07/28/24 The patient is an INPATIENT: No Changes since office visit: No Cold of Flu in the past 2 weeks, No New Medical Problems, No Changes in Medication and No Patient answered all questions The patient has been examined within 24 hours of the surgical procedure. The History & Physical has been completed within 30 days and I have reviewed it.: Yes Section B - Complete if H&P > 30 days Chief Complaint: Malignant neoplasm of unspecified site of left Allergies: Allergies Allergy/AdvReac Type Severity Reaction Status Date / Time amoxicillin Allergy Rash Verified 07/28/24 07:24 benazepril Allergy Unknown Verified 07/28/24 07:24 indapamide Allergy Unknown Verified 07/28/24 07:24 Sulfa (Sulfonamide Allergy Unknown Verified 07/28/24 07:24 Antibiotics) Plan I have reviewed the history and physical and performed a pertinent physical examination on my patient. No changes have occurred unless specified. Time Spent With Patient Time: Total time managing care of this patient today ____ minutes.
--- NOTE | 2024-07-28 13:24 | W.PM.OPN ---
Operative Note Operative Note Date of Service: 07/28/24 Narrative: Preop diagnosis: DCIS, left breast Postop diagnosis: DCIS left breast ) Procedure: Lumpectomy with the Hologic localizer, left breast and sentinel biopsy (as requested by the oncologist) Surgeon: Andrea Kirk MD assistant associate full professor: AZAR Yee The patient is a 68 year old female with a recent diagnosis of DCIS, here for lumpectomy and sentinel biopsy. The sentinel biopsy had been recommended by the medical oncologist in view of a likely invasive component in the DCIS The patient understood the technique of the planned procedure as well as the risks, benefits, and alternatives She was brought to the operating room placed supine under general anesthesia via laryngeal mask airway. The left breast and axilla were prepped and draped in the usual sterile fashion. A surgical time-out was done. The patient received cefazolin 2 g IV preoperatively I had marked the lumpectomy site after using the Hologic localizer to identify the closest location of the RF ID tag to the skin. I infiltrated this area. Lidocaine 1% was used for local anesthesia I made an incision on the superior aspect of breast with a blade 15. This carried down with electrocautery through the full-thickness of the skin and subcutaneous fat. I then proceeded to use the Hologic localizer to periodically notify the area of the RF ID. I used Allis clamps to retract the lumpectomy specimen and used curved Perkins scissors to circumferentially and sharply dissect around this area until was able to deliver the specimen completely. Immediate re-ray in the room showed that the biopsy clip as well as the RF ID tag were within the specimen. This was therefore sent for immediate gross exam to the pathologist I observed for hemostasis. I palpated the surrounding areas and there was no suspicious induration or mass. I applied gauze as a packing to the area and we proceeded to change gloves as well as the instruments set up We then proceeded to do the sentinel node biopsy. I infiltrated the planned line of incision with lidocaine 1% based on the highest counts with the gamma probe in the axilla. I made the incision with a blade 15. I carried down the incision with electrocautery through the full-thickness of the skin and subcutaneous fat through the fascia and until I entered the axillary fat pad. I used appendiceal retractors to allow exposure of the entire axilla. I used the gamma probe to scan the area for high counts. There were 2 sentinel nodes that were identified [place] node 1 had a count of 167. [place] node 2 had a count of 787. I excised both of this lymph nodes after circumferentially dissecting with the Metzenbaum scissors and applying a right angle clamp at the pedicle. I applied silk 3-0 ties at the pedicles I observed for hemostasis. I copiously irrigated. No other elevated counts on scanning the axilla with the gamma probe I closed the deep subcutaneous layer with Polysorb 3-0 simple interrupted sutures At this point the pathologist had called stating that gross exam of the specimen showed that the lesion may be close to the anterior inferior margins. I therefore proceeded to excise some more of this on the lumpectomy site This was sent as additional specimen I then observed for hemostasis on the lumpectomy site. I used electrocautery to achieve this. I copiously irrigated. Once hemostasis was confirmed, I proceeded to then reapposed the deep breast tissue with Polysorb 3-0 simple interrupted sutures Both skin incisions were closed with Polysorb 4-0 subcuticular running sutures. Both incisions were infiltrated with Marcaine 0.5% for postop analgesia. Dressings were applied. The procedure was then completed The patient tolerated the procedure well. There were no immediate complications. Estimated blood loss was about 50 cc The patient was extubated without difficulty and transferred to the recovery room with stable vital signs. Breast [place] Node Biopsy Substrate(s) used for sentinel node biopsy in the non-neoadjuvant setting: Radiotracer Substrate(s) used for sentinel node biopsy in the neoadjuvant setting: N/A All colored nodes or non-colored nodes present at the end of a dye filled lymphatic channel were removed, if dye was used as the substrate for localization: N/A All significantly radioactive nodes were removed, if radionuclide was used as the substrate for localization: Yes All palpably suspicious nodes were removed, if present: N/A If clips were placed in pathology-involved nodes, those nodes were identified and removed: N/A Procedure performed with curative intent?: Yes General Surg. - Synoptic Notes Breast [place] Node Biopsy Substrate(s) used for sentinel node biopsy in the non-neoadjuvant setting: Radiotracer Substrate(s) used for sentinel node biopsy in the neoadjuvant setting: N/A All colored nodes or non-colored nodes present at the end of a dye filled lymphatic channel were removed, if dye was used as the substrate for localization: N/A All significantly radioactive nodes were removed, if radionuclide was used as the substrate for localization: Yes All palpably suspicious nodes were removed, if present: N/A If clips were placed in pathology-involved nodes, those nodes were identified and removed: N/A Procedure performed with curative intent?: Yes
[2024-07-28] MEDS: HYDROmorphone HCl 0.5 MG/0.5 ML SYRINGE 0.25 MG IVPUSH ×4 (14:02→14:35)
== END 2024-07-28 15:33 | disposition home or self-care (01) ==
PROVIDERS: PCP Internal Medicine; Visit Provider Surgery
PROC: (CPT 19301; principal; 2024-07-28 11:40)
DX: D05.12 Intraductal carcinoma in situ of left breast (principal); Z17.1 Estrogen receptor negative status [ER-]; Z17.22 Progesterone receptor negative status; Z17.32 Human epidermal growth factor receptor 2 negative status; I13.10 Hypertensive heart and chronic kidney disease without heart failure, with stage 1 through stage 4 chronic kidney disease, or unspecified chronic kidney disease; E11.22 Type 2 diabetes mellitus with diabetic chronic kidney disease; N18.2 Chronic kidney disease, stage 2 (mild); E11.40 Type 2 diabetes mellitus with diabetic neuropathy, unspecified; R80.1 Persistent proteinuria, unspecified; D46.4 Refractory anemia, unspecified; K75.81 Nonalcoholic steatohepatitis (NASH); E03.9 Hypothyroidism, unspecified; E66.01 Morbid (severe) obesity due to excess calories; Z68.35 Body mass index [BMI] 35.0-35.9, adult; F41.1 Generalized anxiety disorder; Z79.84 Long term (current) use of oral hypoglycemic drugs; Z79.899 Other long term (current) drug therapy; Z88.1 Allergy status to other antibiotic agents; Z88.2 Allergy status to sulfonamides; Z88.8 Allergy status to other drugs, medicaments and biological substances; Z87.891 Personal history of nicotine dependence; Z98.890 Other specified postprocedural states
CPT/HCPCS: 19301; 38525; 38900; 78195; 82947; 88305; 88307; 88329; 88341; 88342; 88360; A9520; J0690; J1171; J2003; J2704; J2795; J3010

== ENCOUNTER → 2024-07-28 06:51 | Outpatient (BNV) | payer MEDICARE, SELFPAY | PROVIDERS: PCP Internal Medicine; Visit Provider Surgery | DX: C50.912 Malignant neoplasm of unspecified site of left female breast (principal) | CPT/HCPCS: 19301; 38525; 38900 ==

== ENCOUNTER → 2024-07-28 07:37 | Outpatient (BNV) | payer MEDICARE, SELFPAY | PROVIDERS: PCP Internal Medicine; Visit Provider Radiology Diagnostic Radiology | DX: C50.912 Malignant neoplasm of unspecified site of left female breast (principal) | CPT/HCPCS: 78195 ==

== ENCOUNTER 2024-08-12 11:22 | Outpatient (AMB) | payer MEDICARE, MEDICAID, SELFPAY ==
--- NOTE | 2024-08-12 11:31 | MHC.OFFVIS ---
Vital Signs 08/12/24 11:36 Height 5 ft 2 in Weight 194 lb BMI 35.5 BP 136/68 Blood Pressure Location Rt brachial Position Sitting Pulse 80 Intake Visit Reasons: S/P Lt. brst lump. w/seed & Lt. axillary SN bx Intake Note: Patient here s/p Lumpectomy with the Hologic localizer, left breast and sentinel biopsy (as requested by the oncologist). Patient c/o: Lt axilla tenderness. Reports surgical site healing well. No longer taking rx pain meds. Surgery: 07-28-2024 Accompanied by: Self / Same As Patient Allergies amoxicillin Allergy (Verified 08/12/24 11:35) Rash benazepril Allergy (Verified 08/12/24 11:35) Unknown indapamide Allergy (Verified 08/12/24 11:35) Unknown Sulfa (Sulfonamide Antibiotics) Allergy (Verified 08/12/24 11:35) Unknown HPI HPI S/P Lt. brst lump. w/seed & Lt. axillary SN bx: Details: She had undergone lumpectomy and sentinel node biopsy on the left for an initial pathologic diagnosis of DCIS. This was done last 07/28/2024. She is here a postop visit She denies any complaints with regards to surgical sites. She says she is doing well overall has good pain control. T she denies any signs of infection. [facility] Medical History Anemia Breast cancer, left Left breast mass Hypertensive heart and chronic kidney disease without heart failure, with stage 1 through stage 4 chronic kidney disease, or unspecified chronic kidney disease Hypothyroidism, unspecified Nonalcoholic steatohepatitis (MCKENNA) Type 2 diabetes mellitus with diabetic neuropathy, unspecified Refractory anemia, 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 Morbid (severe) obesity due to excess calories Generalized anxiety disorder Fatty liver Chronic kidney disease, stage II (mild) Persistent microalbuminuria associated with type 2 diabetes mellitus Type 2 diabetes mellitus Surgical History H/O shoulder surgery Social History Household Members: Spouse Housing: House Are you a primary patient care provider to a significant other at home: No Do you presently have visiting nurse or other home services: No Patient Tobacco Use Status: Former Tobacco user Tobacco use type: Cigarette service: No Current occupational status: retired Gender identity: Female Review of Systems Const Denies chills and Denies fever(s) Card Denies chest pain Resp Denies cough GI Denies abdominal pain Physical Exam Vital Signs: Last Vital Signs Pulse 80 08/12/24 11:36 BP 136/68 08/12/24 11:36 BMI result Body Mass Index 35.5 Const General: comfortable and no acute distress Chest Other: Lumpectomy site on the left and sentinel node biopsy site on the axilla are both well healed, not infected, with no hematoma Assessment & Plan Assessment & Plan (1) Breast cancer, left: Code(s): C50.912 - Malignant neoplasm of unspecified site of left female breast Category: Medical Plan: Status post lumpectomy and sentinel node biopsy. Her final path report shows invasive ductal carcinoma, with concomitant DCIS, ER SC negative, HER2 negative. Three sentinel nodes were removed which were all negative. She has actually been seen by Dr. Reed already last week. 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 The margins appeared to have been negative and this was discussed with the pathologist. She will also this seems to have radiation treatment I will see her in the office in about 6 weeks to see how she is doing. She seems to understand the plan well and is comfortable with this. Coding Level of Care Code Global (02746) Diagnoses Breast cancer, left C50.912
[2024-08-12 11:36] VITALS: BP 136/68; PULSE 80; BMI 35.5
--- OUTSIDE RECORDS SUMMARY | 2024-08-12 13:17 | XMS_ITS | Clinical Summary ---
Author Organization [facility] Address [address] [place] [address] Care Team Providers Care Autotransfusionist Name Role Phone Josias Estrada MD Primary Care Provider [phone] Allergies Active Allergy Reactions Criticality Noted Date [...] 69 06/29/2022 11:27 AM EDT Temperature 36.8 C (98.3 F) 06/29/2022 11:27 AM EDT Respiratory Rate - - Oxygen Saturation 96% [...] 5 season) 2023 07/10/2020, 06/19/2020 Influenza Vaccine (Season Ended) 2024 RSV Adult > 60+ Yrs or (1 - 1-dose 75+ series) 08/19/2031 Hepatitis B Vaccines Aged Out No long er eligible based on patient's age to complete this topic RSV Ped < 20 months Aged Out No longe r eligible based on patient's age to complete this topic Care Teams Autotransfusionist Relationship Specialty Start Date End Date Josias Estrada MD [address] [place] [address] [address] [place] [address] PCP - General Geriatric Medicine 04/13/22
== END 2024-08-12 11:51 | disposition home or self-care (01) ==
LOC: HO.HGS 11:23
PROVIDERS: PCP Internal Medicine; Visit Provider Surgery
DX: C50.912 Malignant neoplasm of unspecified site of left female breast (principal)
CPT/HCPCS: 99024

== ENCOUNTER → 2024-08-12 12:33 | Outpatient (REF) | payer MEDICARE, SELFPAY ==
--- NOTE | 2024-08-12 12:35 | CA_ITS ---
Transthoracic Echocardiogram Patient (Last, First, Middle): Michelle Cueto, Gender: Female Date of : 1955 Age: 68 Procedure Date: 08/12/2024 Procedure Type: Transthoracic Echocardiogram Location: OP Height: 157.48 cm Weight: 88. kg BSA: 1.89 m2 Heart Rate: 64 bpm BP: 136 / 60 mmHg Hand Glove Cleaner: JORJE Referring MD: Francie Reed MD Certified Professional Ergonomist: Demetrio Patton MD Symptoms: pre-chemo eval Study Quality: Adequate w contrast ECG Rhythm: Sinus Conclusions: - 1. Moderate pericardial effusion without clear evidence of tamponade 2. Normal LV ejection fraction of 65-70% with impaired relaxation filling pattern 3. Cardiac valvular Dopplers within normal limits Findings Procedure Information Contrast agent, definity, is being given per protocol without apparent complications. The quality of the study was technically difficult. The study quality is limited by lung artifact. Left Ventricle Normal left ventricular size, thickness, and systolic function. The visually estimated ejection fraction is between 65-70%. Spectral Doppler is indicative of an impaired relaxation filling pattern. Right Ventricle Normal right ventricular cavity size and systolic function. Atria The left atrium is likely dilated. Interatrial shunt cannot be excluded. The right atrium was not well visualized. Aortic Valve The aortic valve was not well visualized. There is no aortic valve stenosis. There is no aortic valve regurgitation. Mitral Valve Likely normal mitral valve structure and function. There is trace mitral valve regurgitation. There is no mitral valve stenosis. Pulmonic Valve The pulmonic valve was not well visualized. Tricuspid Valve The tricuspid valve was not well visualized. There is trace tricuspid valve regurgitation. The right ventricular systolic pressure is normal. The right ventricular systolic pressure is 16 mmHg. Normal right atrial pressure. There is no evidence of pulmonary hypertension. Great Vessels All visible segments of the aorta are normal in size. The pulmonary artery was not well visualized. There is no dilatation of the ascending aorta measuring 3.20 cm. Venous The inferior vena cava is normal in size and collapses greater than 50% with inspiration. Pericardium/Pleural There is a moderate circumferential pericardial effusion. There are no definitive echocardiographic findings of tamponade physiology. The inferior vena cava is normal in size with preserved respiratory variability. Prior Study Comparison No prior study available for comparison. Findings conveyed to Dr. Reed Measurements 2D Linear Measurements IVSd: 1.05 0.6-0.9/0.6-1.0 cm LVIDd: 4.72 3.9-5.3/4.2-5.9 cm LVIDd Index: 2.50 2.4-3.2/2.2-3.1 cm/m2 LVIDs: 2.94 2.0-3.6 cm LVPWd: 0.89 0.7-1.1 cm LA Diam: 4.80 2.7-3.8/3.0-4.0 cm LAIDs Index: 2.54 1.5-2.3 cm/m2 LV Mass: 198.00 67-162/88-224 g LV Mass Index: 104.76 43-95/49-115 g/m2 LVOT Diam: 2.10 3.0+(-)1.3 cm 2D Systolic Function EF 4C: 64.80 >55% EF 2C: 69.50 >55% EF BiP: 66.80 >55% Mitral Valve MV Pk E: 0.87 MV PK A: 0.85 MV Decel Time: 219.00 E/A: 1.00 E'Lateral: 5.00 E'Medial: 8.05 E/E' Med: 10.70 E/E' Lat: 17.30 PHT: 64.00 MVA PHT: 3.44 Decel [place]: 3.94 Aortic Valve AoV Pk Rafael: 2.23 AoV Mn Rafael: 1.54 AoV VTI: 0.45 AoV Pk Grad: 20.00 Aov Mn Grad: 11.00 JASMYN Cont.VTI: 2.34 LVOT LVOT Pk Rafael: 1.34 LVOT Mn Rafael: 0.93 LVOT VTI: 0.30 LVOT Pk Grad: 7.00 LVOT Mn Grad: 4.00 LVOT Diam: 2.10 LVOT Area: 3.46 Diastolic Function MV Pk E: 0.87 MV Pk A: 0.85 E/A: 1.00 E'Medial: 8.05 E/E' Med: 10.70 E' Laterial: 5.00 E/E' Lat: 17.30 Right Ventricle TAPSE (mm): 19.10 TVS' Rafael: 21.10 Tricuspid Valve TR Pk Rafael: 1.80 TR Pk Grad: 13.00 RA Press: 3.00 RVSP: 16.00 Great Vessels Aorta Sinus of Valsalva: 3.10 2.0-3.5 cm Ao Asc: 3.20 2.1-3.4 cm Pulmonary Valve PV Pk Rafael: 1.19 Peak PV Grad: 6.00 Updated in Other Vendor System with Status of Final Demetrio Patton MD electronically signed on 08/13/2024 8:44:54 AM with status of Final
== END ==
LOC: HO.CARD 12:33
PROVIDERS: PCP Internal Medicine; Visit Provider Internal Medicine
DX: C50.912 Malignant neoplasm of unspecified site of left female breast (principal)
CPT/HCPCS: 93306; 99212

== ENCOUNTER → 2024-08-12 12:35 | Outpatient (BNV) | payer MEDICARE, SELFPAY | PROVIDERS: PCP Internal Medicine; Visit Provider Internal Medicine Cardiovascular Disease | DX: I31.39 Other pericardial effusion (noninflammatory) (principal) | CPT/HCPCS: 93306 ==

== ENCOUNTER 2024-08-27 11:17 | Day surgery (SDC) | payer MEDICARE, SELFPAY ==
--- OUTSIDE RECORDS SUMMARY | 2024-08-17 15:58 | XMS_ITS | Clinical Summary ---
Author Organization [facility] Address [address] [place] [address] Care Team Providers Care Medical Billing Manager Name Role Phone Josias Estrada MD Primary Care Provider [phone] Allergies Active Allergy Reactions Criticality Noted Date [...] age to complete this topic Care Teams Medical Billing Manager Relationship Specialty Start Date End Date Josias Estrada MD [address] [place] [address] [address] [place] [address] PCP - General Geriatric Medicine 04/13/22
[2024-08-27] VITALS (11 sets, daily range): BP systolic 119–142; BP diastolic 41–54; PULSE 61–67; RESP 12–16; TEMP 36.6; O2SAT 97–99; BMI 35.4
--- NOTE | ~2024-08-27 | IR_ITS ---
CLINICAL HISTORY: Left breast cancer. The patient presents to interventional radiology for placement of a port for chemotherapy. PROCEDURES: 1. Real-time ultrasound-guided access into the right internal jugular vein after documentation of selected vessel patency, and permanent image storing in the patient records. 2. Placement of a 6.6 Anguillan single-lumen port. CLINICIAN: Karthikeyan Samaniego NP MEDICATIONS: - Versed , Fentanyl , Lidocaine 1% SQ -Antibiotics: Clindamycin 600 mg -For additional details, please see nursing flowsheet. Complications: None. Estimated blood loss: <5 ml Specimens: None. Contrast: None. Fluoroscopy time: 0.9 min MODERATE SEDATION TIME: 36 min PROCEDURE NOTE: The procedure, risks, benefits, and alternatives were carefully explained to the patient and written informed consent was obtained. The patient was placed supine on the fluoroscopy table. A timeout was performed. The right neck and chest was prepped and draped in usual sterile fashion. Maximum barrier technique was utilized. Local anesthesia was administered to the access site with 1% lidocaine. Under ultrasound guidance, the right internal jugular vein was accessed with a 5 fr micropuncture set. A 0.035 in wire was advanced into the IVC. A peel-away sheath was advanced over the wire and into the SVC, and the wire was removed. Next, subcutaneous lidocaine was administered to the chest. The port pocket was created after the skin incision, utilizing blunt dissection. Using blunt dissection, a subcutaneous tunnel was created that connects from the port pocket to the venotomy site. Through the peel-away sheath, the 6.6 Anguillan port catheter was placed. The catheter position was verified with fluoroscopy to be at the superior vena cava/right atrial junction. The port was connected to the catheter and was placed in the pocket. The port incision site was closed with interrupted 3-0 Vicryl subcutaneous sutures and surgical glue. Prior to closing the skin, 600 mg of clindamycin solution was placed in the pocket. The port was tested, flushed, and packed with heparin per routine protocol. The patient tolerated the procedure well. The patient was stable after the procedure and was transferred to the PACU. The procedure was performed under moderate sedation and with a dedicated nurse with continuous monitoring of vital signs. A permanent image of the ultrasound the neck and fluoroscopic image of the chest was saved and sent to PACS. FINDINGS: 1. Patent right internal jugular vein 2. Placement of a 6.6 Anguillan single lumen port. 3. Port flushes and aspirates very well with a 10 mL syringe. No pneumothorax. IR/IR cvc insert tunnel w prt/credit charge authorizer IMPRESSION: Placement of a 6.6 Anguillan single-lumen port. PLAN: - The patient will be discharged home when stable by sedation protocol. - Port may be used immediately. This procedure was performed by Karthikeyan Samaniego NP and directly supervised by Johnathon Mitchell M.D. Electronically signed by: Johnathon Mitchell MD 08/31/2024 04:37 PM EDT
[2024-08-27 11:40] LABS: Glucose, Whole Blood 128 mg/dL (60-115)
[2024-08-27 12:16] LABS: INTERNATIONAL NORM RATIO 1.1 (0.9-1.1); Prothrombin Time 12.3 SEC (10.9-12.4)
[2024-08-27 12:18] LABS: Partial Thromboplastin Time 31.2 SEC (26.0-36.8)
== END 2024-08-27 15:23 | disposition home or self-care (01) ==
PROVIDERS: Radiology Diagnostic Radiology; PCP Internal Medicine; Visit Provider Internal Medicine
DX: Z45.2 Encounter for adjustment and management of vascular access device (principal); C50.212 Malignant neoplasm of upper-inner quadrant of left female breast; Z17.1 Estrogen receptor negative status [ER-]; Z17.22 Progesterone receptor negative status; Z17.32 Human epidermal growth factor receptor 2 negative status; D64.9 Anemia, unspecified; I13.10 Hypertensive heart and chronic kidney disease without heart failure, with stage 1 through stage 4 chronic kidney disease, or unspecified chronic kidney disease; E11.22 Type 2 diabetes mellitus with diabetic chronic kidney disease; N18.2 Chronic kidney disease, stage 2 (mild); E11.40 Type 2 diabetes mellitus with diabetic neuropathy, unspecified; Z79.84 Long term (current) use of oral hypoglycemic drugs; Z87.891 Personal history of nicotine dependence
CPT/HCPCS: 36415; 36561; 82947; 85610; 85730; 99152; 99153; C1769; C1788; J0690; J0736; J1642; J1644; J2250; J3010

== ENCOUNTER → 2024-08-27 12:51 | Outpatient (BNV) | payer MEDICARE, SELFPAY | PROVIDERS: PCP Internal Medicine | DX: C50.912 Malignant neoplasm of unspecified site of left female breast (principal); Z45.2 Encounter for adjustment and management of vascular access device | CPT/HCPCS: 76937; 77001 ==

== ENCOUNTER 2024-08-31 11:28 | Outpatient (REF) | payer MEDICARE, SELFPAY ==
--- NOTE | ~2024-08-31 | CT_ITS ---
EXAMINATION: CT CHEST WITHOUT CONTRAST CLINICAL INFORMATION: Pericardial effusion COMPARISON: None available. TECHNIQUE: Multidetector volumetric CT imaging of the chest was done. Axial MIP volume rendering provided. Sagittal and coronal reformatted images were obtained. This CT examination was performed using dose optimization techniques as appropriate, variously including the following: *Automated exposure control *Adjustment of mA and/or kV according to patient size (this includes techniques or standardized protocols for targeted exams where dose is matched to indication/reason for exam; i.e. extremities or head) *Use of iterative reconstruction technique DLP: 201 mGY*cm FINDINGS: LUNGS: The lungs are clear with no evidence of inflammation or nodules. MEDIASTINUM: There is a small pericardial effusion versus pericardial thickening. CORONARY ARTERY CALCIFICATION: Present PLEURA: There is no pleural effusion. No pleural mass or thickening. AXILLA: No lymphadenopathy. UPPER ABDOMEN: Spleen is large measuring 14.4 cm. OSSEOUS STRUCTURES: Unremarkable. CT/CT chest wo IV con IMPRESSION: Small pericardial effusion versus pericardial thickening. Splenomegaly. This is a nonspecific finding that can be related to infection, inflammation, sequestration, neoplasm, and multiple other causes. Fleischner guidelines were followed. Electronically signed by: Kenton Harmon MD 08/31/2024 12:43 PM EDT
--- OUTSIDE RECORDS SUMMARY | 2024-08-31 12:22 | XMS_ITS | Clinical Summary ---
Author Organization [facility] Address [address] [place] [address] Care Team Providers Care Stone Splitter Name Role Phone Josias Estrada MD Primary Care Provider [phone] Allergies Active Allergy Reactions Criticality Noted Date [...] age to complete this topic Care Teams Stone Splitter Relationship Specialty Start Date End Date Josias Estrada MD [address] [place] [address] [address] [place] [address] PCP - General Geriatric Medicine 04/13/22
--- OUTSIDE RECORDS SUMMARY | 2024-08-31 12:22 | XMS_ITS | Clinical Summary ---
Author Organization [facility] Address [address] [place] [address] Phone Care Team Providers Care Loss Prevention Consultant Name Role Phone Josias Estrada MD Primary Care Provider [phone] Encounters Date Type Department Care Team Description 08/13/2024 11:15 AM EDT - 08/13/2024 11:59 PM EDT Hospital Encounter [facility] PET Scan [address] [place] [address] Malignant neoplasm of unspecified site of left female breast ([facility] V24, [facility] V28) Discharge Disposition: Home or Self Care from Last 3 Months Surgical History Surgery Date Site/Laterality Comments SHOULDER SURGERY PROCEDURE:SHOULDER SURGERY Medical History Medical History Date Comments Diabetes mellitus ([facility] V24, [facility] V28) DX:Diabetes mellitus (HCC) CKD (chronic kidney disease) DX: CKD (chronic kidney disease) Social History Tobacco Use Types Packs/Day Years Used Date Smoking Tobacco: Former Smokeless Tobacco: Never Alcohol Use Standard Drinks/Week Comments Yes 6 (1 standard drink = 0.6 oz pur e alcohol) Comments Unknown Sex and Gender Information Value Date Recorded Sex Assigned at Not on file Legal Sex Female 8:06 PM EST Gender Identity Not on file Sexual Orientation Not on file Obstetrics History Last Filed Vital Signs Vital Sign Reading Time Taken Comments Blood Pressure 136/46 06/29/2022 11:27 AM EDT Sitting Left arm Pulse 68 06/29/2022 11:27 AM EDT Temperature - - Respiratory Rate - - Oxygen Saturation - - Inhaled Oxygen Concentration - - Weight 89.1 kg (196 lb 6.4 oz) 06/29/2022 11:27 AM EDT Height 157.5 cm (5' 2 ) 06/29/2022 11:2 7 AM EDT Body Mass Index 35.92 06/29/2022 11:27 AM EDT Plan of Treatment Health Maintenance Due Date Last Done Comments Breast Cancer Screening 1955 Diabetes: Annual GFR (Glomerular Filtration Rate) 1955 Diabetes: Annual Foot Exam 1966 Diabetes: Annual Retina Eye Exam 1966 DTaP,Tdap,and Td Vaccines (1 - Tdap) 08/19/1975 Pneumococcal Vaccine: 50+ Years (1 of 2 - PCV) 08/19/1975 Zoster Vaccines (1 of 2) 08/19/1975 RSV Immunization Adult Patients (1 - Risk 60-74 years 1-dose series) 2016 COVID-19 Vaccine (3 - Pfizer risk series) 08/07/2020 07/10/2020, 06/19/2020 Cholesterol Screening (Lipid Panel) 03/21/2023 Colorectal Cancer Screening: Colonoscopy 03/21/2023 Depression Screening 03/21/2023 Falls Risk Assessment 03/21/2023 Hepatitis C Screening 03/21/2023 Osteoporosis Screening (Bone Density Screening) 03/21/2023 Social Influencers of Health Screening 03/21/2023 Medicare Annual Wellness Visit 07/18/2023 07/17/2022 Diabetes: Annual Urine Albumin-Creatinine Ratio (uACR) 08/13/2024 Diabetes: Blood Sugar Contro l Test (HGBA1C) 08/13/2024 Influenza Vaccine (Season Ended) 2024 HIB Vaccines Aged Out No longer eligi ble based on patient's age to complete this topic HPV Vaccines Aged Out No longer eligi ble based on patient's age to complete this topic Hepatitis A Vaccines Aged Out No long er eligible based on patient's age to complete this topic Hepatitis B Vaccines Aged Out No long er eligible based on patient's age to complete this topic IPV Vaccines Aged Out No longer eligi ble based on patient's age to complete this topic MMR Vaccines Aged Out No longer eligi ble based on patient's age to complete this topic Meningococcal ACWY Vaccine Aged Out N o longer eligible based on patient's age to complete this topic Meningococcal B Vaccine Aged Out No l onger eligible based on patient's age to complete this topic RSV Immunization Patients Under 20 months Aged Out No longer eligible b ased on patient's age to complete this topic Varicella Vaccines Aged Out No longer eligible based on patient's age to complete this topic Procedures Procedure Name Priority Date/Time Associated Diagnosis Comments PET CT SKULL TO MID THIGH INITIAL Routine 08/13/2024 1:23 PM EDT Malignant neoplasm of unspecified site of left female breast (CMS/HCC V24, CMS/HCC V28) from Last 3 Months Results * PET CT Skull to Mid Thigh Initial (08/13/2024 1:23 PM EDT) Anatomical Region Laterality Modality Body Radiographic Ariana ging 2024 8:54 AM EDT Impressions 2024 9:13 AM EDT Mild activity within the left axilla most likely represents postoperative changes with localized metastatic disease not excluded. Recommend correlation with pathological results. No PET/CT evidence of distant metastases. -------- FINAL REPORT -------- Dictated By: Alyia Finley Dictated Date: 2024 08:54 ET Assigned Physician: Aliya Finley Reviewed and Electronically Signed By: Aliya Finley Signed Date: 2024 09:13 ET Workstation ID: [id number] Transcribed By: Self Edit Transcribed Date: 2024 08:54 ET Narrative 2024 9:13 AM EDT INDICATION: Breast carcinoma, initial treatment strategy Prior relevant studies: None Radiopharmaceutical: 12.7 mCi of F-18 FDG IV. Blood glucose: 122 mg/dl. PROCEDURE: Routine body FDG PET-CT imaging was performed from the skull base to the mid thighs and reconstructed in axial, coronal, and sagittal planes at the computer workstation with fused data from both the PET imaging study and attenuation correction CT. The CT portion of the examination was done strictly for attenuation correction and is not a true diagnostic CT examination. CTDI: 14.45 mGy FINDINGS: HEAD AND NECK: No abnormal FDG activity. THORAX: No FDG avid pulmonary nodules or intrathoracic adenopathy. In particular is no abnormal activity along the left internal mammary samm chain. No abnormal activity associated with small pericardial effusion. Left axilla: Rounded area lateral to the pectoralis muscles adjacent to the chest wall with SUV max of 2.3 may represent a node. More superficial area with SUV max 2.2 cm irregular region of increased soft tissue attenuation without discrete nodule. Left breast: 5.2 cm x 3 cm left breast collection represents postoperative seroma. Mild overlying skin thickening with mild increased activity with SUV max of 2 most likely represents healing response. ABDOMEN/PELVIS: No abnormal FDG activity. Physiological activity noted within ileal loops as well as along the colon. MUSCULOSKELETAL: No abnormal FDG activity. Physiological activity noted along the right AC joint. Procedure Note Aliya Finley MD - 2024 INDICATION: Breast carcinoma, initial treatment strategy Prior relevant studies: None Radiopharmaceutical: 12.7 mCi of F-18 FDG IV. Blood glucose: 122 mg/dl. PROCEDURE: Routine body FDG PET-CT imaging was performed from the skullbase to the mid thighs and reconstructed in axial, coronal, and sagittalplanes at the computer workstation with fused data from both the PETimaging study and attenuation correction CT. The CT portion of theexamination was done strictly for attenuation correction and is not a truediagnostic CT examination. CTDI: 14.45 mGy FINDINGS: HEAD AND NECK: No abnormal FDG activity. THORAX: No FDG avid pulmonary nodules or intrathoracic adenopathy. Inparticular is no abnormal activity along the left internal mammary nodalchain. No abnormal activity associated with small pericardial effusion. Left axilla: Rounded area lateral to the pectoralis muscles adjacent tothe chest wall with SUV max of 2.3 may represent a node. More superficialarea with SUV max 2.2 cm irregular region of increased soft tissueattenuation without discrete nodule. Left breast: 5.2 cm x 3 cm left breast collection represents postoperativeseroma. Mild overlying skin thickening with mild increased activity withSUV max of 2 most likely represents healing response. ABDOMEN/PELVIS: No abnormal FDG activity. Physiological activity notedwithin ileal loops as well as along the colon. MUSCULOSKELETAL: No abnormal FDG activity. Physiological activity noted along the right AC joint. IMPRESSION: Mild activity within the left axilla most likely represents postoperativechanges with localized metastatic disease not excluded. Recommendcorrelation with pathological results. No PET/CT evidence of distant metastases. -------- FINAL REPORT -------- Dictated By: Aliya Finley Dictated Date: 2024 08:54 ET Assigned Physician: Aliya Finley Reviewed and Electronically Signed By: Aliya Finley Signed Date: 2024 09:13 ET Workstation ID: [id number] Transcribed By: Self Edit Transcribed Date: 2024 08:54 ET Francie Reed MD IMG NM PROCEDURES Final Result from Last 3 Months Insurance MEDICARE Care Teams Loss Prevention Consultant Relationship Specialty Start Date End Date Josias Estrada MD [address] [facility] [address] [place], [place] PCP - General 04/13/22
== END 2024-08-31 11:29 | disposition home or self-care (01) ==
LOC: HO.CT 11:28
PROVIDERS: PCP Internal Medicine; Visit Provider Internal Medicine
DX: C50.912 Malignant neoplasm of unspecified site of left female breast (principal); I31.39 Other pericardial effusion (noninflammatory)
CPT/HCPCS: 71250

== ENCOUNTER → 2024-08-31 11:32 | Outpatient (BNV) | payer MEDICARE, SELFPAY | PROVIDERS: PCP Internal Medicine; Visit Provider Radiology Diagnostic Radiology | DX: I31.39 Other pericardial effusion (noninflammatory) (principal) | CPT/HCPCS: 71250 ==

== ENCOUNTER 2024-09-14 10:41 | Outpatient (AMB) | payer MEDICARE, SELFPAY ==
--- NOTE | 2024-09-14 11:03 | A.OFFVIS_ITS ---
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 Topper Required: No Accompanied by: Significant Other Allergies amoxicillin Allergy (Verified 08/12/24 11:35) Rash benazepril Allergy (Verified 08/12/24 11:35) Unknown indapamide Allergy (Verified 08/12/24 11:35) Unknown Sulfa (Sulfonamide Antibiotics) Allergy (Verified 08/12/24 11:35) Unknown Medication List - Last Reconciled 09/14/24 by Esa Lopez MD albuterol sulfate 90 mcg/actuation 2 puffs inhalation Q4H PRN amlodipine 10 mg PO DAILY dexamethasone 2 mg PO BID levothyroxine 75 mcg PO DAILY lorazepam 0.5 mg PO BID PRN losartan-hydrochlorothiazide 100-25 mg 1 tab PO DAILY metformin 1,000 mg PO BID ondansetron 8 mg PO Q8H PRN simvastatin 20 mg PO BEDTIME HPI Comments Details: Pleasant 69 year female who recently got diagnosed with left breast cancer and started chemotherapy. As part of workup she had echocardiography performed which showed preserved LV function but did show a moderate pericardial effusion without any tamponade physiology. After echo was reported I had a discussion with Dr. Reed about chemotherapy and given the fact that she had normal LV function we decided to proceed with chemotherapy. She is saying that she has been dizzy occasionally when she bends forward. Her blood pressure is low in the office and she is saying that her blood pressure runs at the same level for the last 6 months. She is taking 3 antihypertensive medications currently. No syncope. No shortness of breath or any other complaints. Denying any viral illness recently. She has hypothyroidism and takes levothyroxine. No recent TSH testing. [facility] Medical History Anemia Breast cancer, left Left breast mass Hypertensive heart and chronic kidney disease without heart failure, with stage 1 through stage 4 chronic kidney disease, or unspecified chronic kidney disease Hypothyroidism, unspecified Nonalcoholic steatohepatitis (MCKENNA) Type 2 diabetes mellitus with diabetic neuropathy, unspecified Refractory anemia, 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 Morbid (severe) obesity due to excess calories Generalized anxiety disorder Fatty liver Chronic kidney disease, stage II (mild) Persistent microalbuminuria associated with type 2 diabetes mellitus Type 2 diabetes mellitus Surgical History H/O shoulder surgery Social History Household Members: Spouse Housing: House Are you a primary medical care administrator to a significant other at home: No Do you presently have visiting nurse or other home services: No Patient Tobacco Use Status: Former Tobacco user Tobacco use type: Cigarette service: No Current occupational status: retired Gender identity: Female Review of Systems Const Denies chills, Denies fatigue, Denies fever(s), Denies frequent falls, Denies weakness, Denies weight gain and Denies weight loss ENT Denies dizziness Card Denies chest pain, Denies leg edema, Denies lightheadedness, Denies palpitations, Denies dyspnea, Denies dyspnea on exertion and Denies orthopnea Resp Denies cough, Denies dyspnea and Denies dyspnea on exertion GI Denies bloating and Denies change in bowel habits Musc Denies muscle weakness, Denies numbness and Denies tingling Neuro Denies dizziness, Denies frequent falls, Denies numbness, Denies tingling and Denies weakness Endo Denies fatigue and Denies palpitations Physical Exam Vital Signs: Last Vital Signs Pulse 72 09/14/24 11:04 BP 100/52 L 09/14/24 11:04 BMI result Body Mass Index 35.1 GENERAL APPEARANCE: in no acute distress, pleasant. NECK: no carotid bruit, no jugular venous distention. SKIN: no suspicious lesions, warm and dry. HEART: no murmurs, regular rate and rhythm. No friction rub. LUNGS: clear to auscultation bilaterally. ABDOMEN: soft, nontender. EXTREMITIES: no edema. PERIPHERAL PULSES: equal. NEUROLOGIC: No gross deficits, AAO X 3 Office Procedures EKG Details: NSR 72/min, low voltage QRS, nonspecific ST changes, QTc 433 msec. 96182-[id number], Complete Assessment & Plan Assessment & Plan (1) Pericardial effusion: Code(s): I31.39 - Other pericardial effusion (noninflammatory) Category: Medical Plan [age] year female with breast cancer who started chemotherapy 7 days ago and had a pre chemo echocardiogram which showed moderate pericardial effusion without tamponade physiology. Clinically she is not in tamponade. She does have low blood pressures but these go back to 6 months. She also is on 3 antihypertensive medications. I have advised her to stop the amlodipine for now. Continue losartan hydrochlorothiazide as before. If blood pressure is low then we can change her to losartan only and stop the hydrochlorothiazide. We will repeat a limited echocardiogram on her to reassess the effusion because her previous ECHO was a month ago. If effusion continues to be stable then we will periodically monitor it on the other hand if it grows in size then we may have to do a therapeutic pericardiocentesis. Etiology is unclear but with breast cancer there is always concern that is there a metastatic process. Her CT scan also raise concern for some pericardial thickening. In any case we will monitor this closely and if a point comes where we have to drain it then we can check for metastatic cells. Currently she is on chemotherapy which is indicated for treatment of breast cancer. She will see us back in few months. Thank you for allowing me to participate in the care of your patient. Please feel free to contact me if you have any questions. Orders: Orders CA Echo Limited Today I31.39 - Other pericardial effusion (noninflammatory) Coding Level of Care Code New Pt Level 4 (91111) Diagnoses Pericardial effusion I31.39 CPT Codes EKG - CPT: 66780-Fcrwthqutlkteduea, Complete ([id number])
[2024-09-14 11:04] VITALS: BP 100/52; PULSE 72; BMI 35.1
--- OUTSIDE RECORDS SUMMARY | 2024-09-14 11:43 | XMS_ITS | Clinical Summary ---
Author Organization [facility] Address [address] [place] [address] Care Team Providers Care Zoning Technician Name Role Phone Josias Estrada MD Primary Care Provider [phone] Allergies Active Allergy Reactions Criticality Noted Date [...] season) 2023 07/10/2020, 06/19/2020 Influenza Vaccine (#1) 2024 RSV Adult > 60+ Yrs or (1 - 1-dose 75+ series) 08/19/2031 Hepatitis B Vaccines Aged Out No long er eligible based on patient's age to complete this topic RSV Ped < 20 months Aged Out No longe r eligible based on patient's age to complete this topic Care Teams Zoning Technician Relationship Specialty Start Date End Date Josias Estrada MD [address] [place] [address] [address] [place] [address] PCP - General Geriatric Medicine 04/13/22
--- OUTSIDE RECORDS SUMMARY | 2024-09-14 11:44 | XMS_ITS | Clinical Summary ---
Author Organization [facility] Address [address] [facility] [address] [place] [address] Phone Care Team Providers Care Administrative Coordinator Name Role Phone Josias Estrada MD Primary Care Provider + Francie Reed MD Unavailable [phone] Gisele Berger MD Unavailable [phone] Medications amLODIPine (NORVASC) 10 MG tablet Take 1 tablet by mouth every morning. 02/17/2024 Active levothyroxine (SYNTHROID, LEVOTHROID) 75 MCG tablet Take 1 tablet by mouth every morning. 04/09/2024 Active losartan-hydroC HLOROthiazide (HYZAAR) 100-25 mg per tablet Take 1 tablet by mouth every morning. 03/17/2024 Active metFORMIN (GLUCOPHAGE) 1000 MG tablet Take 1 tablet by mouth 2 (two) times a day. 02/19/2024 Active simvastatin (ZOCOR) 20 MG tablet Take 20 mg by mouth nightly at bedtime. 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 Not on zoe e 03/13/2024 Are you concerned about learning? Not on file 03/13/2024 No 03/13/2024 No 03/13/2024 Digital Access Answer Date Recorded No 03/13/2024 No 03/13/2024 Reliable internet access at home? Not on file 03/13/2024 Device with a working camera? Not on file Comments Unknown Sex and Gender Information Value Date Recorded Sex Assigned at Female 03/10/2024 12:32 PM EST Legal Sex Female 12:31 PM EST Gender Identity Female 03/10/2024 12:32 PM EST Sexual Orientation Straight 03/10/2024 12 :32 PM EST Last Filed Vital Signs Vital Sign Reading Time Taken Comments Blood Pressure 133/63 05/04/2024 8:09 AM EDT Pulse 72 05/04/2024 8:09 AM EDT Temperature 36.2 C (97.2 F) 05/04/2024 8:09 AM EDT Respiratory Rate 18 05/04/2024 8:08 AM EDT Oxygen Saturation 98% 05/04/2024 8:09 AM EDT Inhaled Oxygen Concentration - - Weight 86 kg (189 lb 9.5 oz) 05/04/2024 8:08 AM EDT Height 158.4 cm (5' 2.36 ) 05/04/2024 8:08 AM ED T Body Mass Index 34.28 05/04/2024 8:08 AM EDT Plan of Treatment Health Maintenance Due Date Last Done Comments Adult Td,Tdap Booster 1955 CREATININE LEVEL 1955 HEMOGLOBIN A1C 1955 POTASSIUM LEVEL 1956 TSH LEVEL 1956 DEPRESSION SCREENING 1968 SMOKING Hx and SMOKELESS TOBACCO SCREENING 1969 HEPATITIS C SCREENING 1974 PNEUMOCOCCAL VACCINES (50+ years) (1 of 2 - PCV) 08/19/1975 MAMMOGRAM 1996 COLOGUARD 2001 COLONOSCOPY 2001 COLORECTAL CANCER SCREENING 2001 FIT TEST 2001 FOBT 2001 SIGMOIDOSCOPY 2001 VIRTUAL COLONOSCOPY 2001 ZOSTER VACCINES (1 of 2) 2006 OSTEOPOROSIS SCREENING INITI AL (ONE-TIME) 2021 COVID-19 VACCINE (3 - 2023-2 5 season) 2023 07/10/2020, 06/19/2020 DIABETIC EYE EXAM 05/04/2024 BLOOD PRESSURE 11/04/2024 05/04/2024 RSV VACCINE (1 - 1-dose 75+ series) 08/19/2031 HEPATITIS A VACCINES Aged Out No long er eligible based on patient's age to complete this topic HIB VACCINES Aged Out No longer eligi ble based on patient's age to complete this topic MENINGOCOCCAL VACCINES (ACWY) Aged Out No longer eligible based on patient's age to complete this topic MENINGOCOCCAL VACCINES (B) Aged Out N o longer eligible based on patient's age to complete this topic Medical Devices Not on file Procedures Procedure Name Priority Date/Time Associated Diagnosis Comments OUTSIDE IMAGING 08/05/2024 from Last 3 Months Results * Outside Imaging Report Only (08/05/2024) us Scanning Interface Provider IMG XR CHEST Fani l Result from Last 3 Months Insurance MEDICARE PART A & B [facility] MEDICARE SUPP[facility]MENT [facility] Address: [facility] [id number] [place] [address] MEDICARE PART A & B [facility] MEDICARE SUPPLEMENT MEDICARE PART A & B [facility] MEDICARE SUPPLEMENT MEDICARE PART A & B Member Subscriber Plan / Payer (Ef fective 2021-) Name:Michelle Cueto Member ID:[id number] Relation to Subscriber:Self Name:Michelle Cueto Subscriber ID:[id number] Payer ID:[id number] Group ID:Not on file Type:Medicare Address: [employer] [address] [place] [phone] [facility] MEDICARE SUPP[facility]MENT [facility] Address: [facility] [id number] [place] [address] MEDICARE PART A & B [facility] MEDICARE SUPPLEMENT MEDICARE PART A & B [facility] MEDICARE SUPPLEMENT Member Subscriber Plan / Payer (Ef fective 2024-) Name:Michelle Cueto Relation to Subscriber:Self Name:Michelle Cueto Payer ID:[id number] (NAIC) Group ID:Not on file Type:O Address: [address] [place] [phone] Care Teams Administrative Coordinator Relationship Specialty Start Date End Date Josias Estrada MD [address] [place] [phone] PCP - General Internal Medicine 03/10/24 Francie Reed MD [address] [place] [phone] [email or web address] Referring Physician Internal Medicine 03/10/24 Gisele Berger MD [address] [facility] [address] Division [place] [address] [email or web address] [facility] Consulting Provider Hematology 05/04/24 Additional Source Comments The information contained in this document represents components of the legal health record. It is not the complete legal health record.[facility]
--- OUTSIDE RECORDS SUMMARY | 2024-09-14 11:44 | XMS_ITS | Clinical Summary ---
Author Organization [facility] Address [address] [place] [address] Phone Care Team Providers Care Script Artist Name Role Phone Josias Estrada MD Primary Care Provider [phone] Encounters Date Type Department Care Team Description 08/13/2024 11:15 AM EDT - 08/13/2024 11:59 PM EDT Hospital Encounter [facility] PET Scan [address] [place] [address] Malignant neoplasm of unspecified site of left female breast ([facility] V24, [facility] V28) Discharge Disposition: Home or Self Care from Last 3 Months Surgical History Surgery Date Site/Laterality Comments SHOULDER SURGERY PROCEDURE:SHOULDER SURGERY Medical History Medical History Date Comments Diabetes mellitus ([facility] V24, [facility] V28) DX:Diabetes mellitus (HCC) CKD (chronic kidney [...] Panel) 03/21/2023 Colorectal Cancer Screening: Colonoscopy 03/21/2023 Falls Risk Assessment 03/21/2023 Hepatitis C Screening 03/21/2023 Osteoporosis Screening (Bone Density Screening) 03/21/2023 Social Influencers of Health Screening 03/21/2023 Medicare Annual Wellness Visit 07/18/2023 07/17/2022 Depression Screening 02/26/2024 Diabetes: Annual Urine Albumin-Creatinine Ratio (uACR) 08/13/2024 Diabetes: Blood Sugar Contro l Test (HGBA1C) 08/13/2024 Influenza Vaccine (#1) 2024 HIB Vaccines Aged Out No longer [...] Signed Date: 2024 09:13 ET Workstation ID: [id number] Transcribed By: Self Edit Transcribed Date: 2024 [...] Signed Date: 2024 09:13 ET Workstation ID: [id number] Transcribed By: Self Edit Transcribed Date: 2024 08:54 ET Francie Reed MD IMG NM PROCEDURES Final Result from Last 3 Months Insurance MEDICARE Care Teams Script Artist Relationship Specialty Start Date End Date Josias Estrada MD [address] [facility] [address] [place], [place] PCP - General 04/13/22
== END 2024-09-14 11:46 | disposition home or self-care (01) ==
LOC: HO.HCS 10:41
PROVIDERS: PCP Internal Medicine; Visit Provider Internal Medicine Cardiovascular Disease
DX: I31.39 Other pericardial effusion (noninflammatory) (principal)
CPT/HCPCS: 93010; 99204

== ENCOUNTER → 2024-09-14 10:41 | Outpatient (BNVA) | payer MEDICARE, SELFPAY | PROVIDERS: PCP Internal Medicine; Visit Provider Internal Medicine Cardiovascular Disease | DX: Z01.818 Encounter for other preprocedural examination (principal); C50.912 Malignant neoplasm of unspecified site of left female breast; I31.39 Other pericardial effusion (noninflammatory); I12.9 Hypertensive chronic kidney disease with stage 1 through stage 4 chronic kidney disease, or unspecified chronic kidney disease; N18.2 Chronic kidney disease, stage 2 (mild); Z79.899 Other long term (current) drug therapy; Z79.60 Long term (current) use of unspecified immunomodulators and immunosuppressants | CPT/HCPCS: 93005; 99202 ==

== ENCOUNTER → 2024-09-15 07:50 | Outpatient (REF) | payer MEDICARE, SELFPAY ==
--- NOTE | 2024-09-15 07:52 | CA_ITS ---
Transthoracic Echocardiogram Patient (Last, First, Middle): Michelle Cueto, Gender: Female Date of : 1955 Age: 69 Procedure Date: 09/15/2024 Procedure Type: Transthoracic Echocardiogram Location: OP Height: 157.48 cm Weight: 89.81 kg BSA: 1.90 m2 Heart Rate: bpm BP: 116 / 50 mmHg Detector Car Operator: Referring MD: Esa Lopez MD Contract Assistant: Esa Lopez MD Symptoms: I31.39 - Other pericardial effusion (noninflammatory) Study Quality: Good ECG Rhythm: Sinus Conclusions: - Prominent epicardial adipose tissue noted. There is a moderate pericardial effusion. There are no definitive echocardiographic findings of tamponade physiology. Findings Left Ventricle Normal left ventricular size and systolic function. There is mildly increased left ventricular wall thickness. There is no evidence of regional wall motion abnormalities. Right Ventricle Normal right ventricular cavity size and systolic function. Tricuspid Valve Moderately elevated right atrial pressure. Venous The inferior vena cava is normal in size and collapses less than 50% with inspiration. Pericardium/Pleural Prominent epicardial adipose tissue noted. There is a moderate pericardial effusion. There are no definitive echocardiographic findings of tamponade physiology. Prior Study Comparison No significant change compared to prior study dated: 08/12/2024. Measurements 2D Linear Measurements IVSd: 1.26 0.6-0.9/0.6-1.0 cm LVIDd: 4.33 3.9-5.3/4.2-5.9 cm LVIDd Index: 2.28 2.4-3.2/2.2-3.1 cm/m2 LVIDs: 2.71 2.0-3.6 cm LVPWd: 1.28 0.7-1.1 cm LV Mass: 252.78 67-162/88-224 g LV Mass Index: 133.04 43-95/49-115 g/m2 Mitral Valve MV Pk E: 0.79 MV PK A: 0.98 MV Decel Time: 238.00 E/A: 0.80 PHT: 70.00 MVA PHT: 3.14 Decel Surry: 3.31 Diastolic Function MV Pk E: 0.79 MV Pk A: 0.98 E/A: 0.80 Updated in Other Vendor System with Status of Final Esa Lopez MD electronically signed on 09/16/2024 5:08:01 PM with status of Final
--- OUTSIDE RECORDS SUMMARY | 2024-09-15 07:52 | XMS_ITS | Clinical Summary ---
Author Organization [facility] Address [address] [employer] [facility] [address] [place] [address] Phone Care Team Providers Care Sider Name Role Phone Josias Estrada MD Primary Care Provider + Francie Reed MD Unavailable [phone] Gisele Berger MD Unavailable [phone] Medications amLODIPine (NORVASC) 10 MG tablet Take [...] Months Insurance MEDICARE PART A & B [facility] MEDIC[facility] Address[facility] [id number] [place] [address] MEDICARE PART A & B [facility] MEDICARE SUPPLEMENT MEDICARE PART A & B [facility] MEDICARE SUPPLEMENT MEDICARE PART A & B Member Subscriber Plan / Payer (Ef fective 2021-) Name:Michelle Cueto Member ID:[id number] Relation to Subscriber:Self Name:Michelle Cueto Subscriber ID:[id number] Payer ID:[id number] Group ID:Not on file Type:Medicare Address: [employer] [address] [place] [id number] [facility] MEDICARE [facility] Address: [facility] [id number] [place] [address] MEDICARE PART A & B [facility] MEDICARE SUPPLEMENT MEDICARE PART A & B [facility] MEDICARE SUPPLEMENT Member Subscriber Plan / Payer (Ef fective 2024-) Name:Michelle Cueto Relation to Subscriber:Self Name:Michelle Cueto Payer ID:[id number] (NAIC) Group ID:Not on file Type:O Address: [address] [place] [phone] Care Teams Sider Relationship Specialty Start Date End Date Josias Estrada MD [address] [place] [address] [phone] PCP - General Internal Medicine 03/10/24 Francie Reed MD [address] [place] [phone] [email or web address] Referring Physician Internal Medicine 03/10/24 Gisele Berger MD [address] [facility] [address] Division [place] [address] [email or web address] [email or web address] Provider Hematology 05/04/24 Additional Source Comments The information contained in this document represents components of the legal health record. It is not the complete legal health record.[facility]
--- OUTSIDE RECORDS SUMMARY | 2024-09-15 07:52 | XMS_ITS | Clinical Summary ---
Author Organization [facility] Address [address] [place] [address] Care Team Providers Care Director Enterprise Systems Name Role Phone Josias Estrada MD Primary Care Provider [phone] Allergies Active Allergy Reactions Criticality Noted Date [...] age to complete this topic Care Teams Director Enterprise Systems Relationship Specialty Start Date End Date Josias Estrada MD [address] [place] [address] [address] [place] [address] PCP - General Geriatric Medicine 04/13/22
--- OUTSIDE RECORDS SUMMARY | 2024-09-15 07:52 | XMS_ITS | Clinical Summary ---
Author Organization [facility] Address [address] [place] [address] Phone Care Team Providers Care Garland Machine Operator Name Role Phone Josias Estrada MD Primary Care Provider [phone] Encounters Date Type Department Care Team Description 08/13/2024 11:15 AM EDT - 08/13/2024 11:59 PM EDT Hospital Encounter [facility] PET Scan [address] [place] [address] Malignant neoplasm of unspecified site of left female breast ([facility] V24, [facility] V28) Discharge Disposition: Home or Self Care from Last 3 Months Surgical History Surgery Date Site/Laterality Comments SHOULDER SURGERY PROCEDURE:SHOULDER SURGERY Medical History Medical History Date Comments Diabetes mellitus ([facility] V24, [facility] V28) DX:Diabetes mellitus (HCC) CKD (chronic kidney [...] Signed Date: 2024 09:13 ET Workstation ID: [id number] Transcribed By: Self Edit Transcribed Date: 2024 [...] Signed Date: 2024 09:13 ET Workstation ID: [id number] Transcribed By: Self Edit Transcribed Date: 2024 08:54 ET Francie Reed MD IMG NM PROCEDURES Final Result from Last 3 Months Insurance MEDICARE Care Teams Garland Machine Operator Relationship Specialty Start Date End Date Josias Estrada MD [address] [facility] [address] [place], [place] PCP - General 04/13/22
== END ==
LOC: HO.CARD 07:50
PROVIDERS: Visit Provider Internal Medicine Cardiovascular Disease
DX: I31.39 Other pericardial effusion (noninflammatory) (principal)
CPT/HCPCS: 93308

== ENCOUNTER → 2024-09-15 07:52 | Outpatient (BNV) | payer MEDICARE, SELFPAY | PROVIDERS: Visit Provider Internal Medicine Cardiovascular Disease | DX: I31.39 Other pericardial effusion (noninflammatory) (principal) | CPT/HCPCS: 93308 ==

== ENCOUNTER 2024-12-16 10:54 | Outpatient (AMB) | payer MEDICARE, SELFPAY ==
[2024-12-16 11:14] VITALS: BP 124/62; PULSE 69; BMI 33.9
--- NOTE | 2024-12-16 11:14 | A.OFFVIS_ITS ---
Vital Signs 12/16/24 11:14 Height 5 ft 2 in Weight 185 lb 10.067 oz BMI 33.9 BP 124/62 Blood Pressure Location Lt brachial Position Sitting Pulse 69 Pulse Source Pulse Oximeter Intake Visit Reasons: 3 mth f/up Intake Note: 3 mth f/up Plastic Machine Operator Required: No Accompanied by: Self / Same As Patient Allergies amoxicillin Allergy (Verified 08/12/24 11:35) Rash benazepril Allergy (Verified 08/12/24 11:35) Unknown indapamide Allergy (Verified 08/12/24 11:35) Unknown Sulfa (Sulfonamide Antibiotics) Allergy (Verified 08/12/24 11:35) Unknown Medication List - Last Reconciled 12/16/24 by Esa Lopez MD albuterol sulfate 90 mcg/actuation 2 puffs inhalation Q4H PRN azelastine 0.05% 1 drp ophthalmic (eye) BID cetirizine-pseudoephedrine 5-120 mg ER (Zyrtec-D) 1 tab PO Q12H dexamethasone 2 mg PO BID diphenoxylate-atropine 2.5-0.025 mg/5 mL 5 mL PO BID PRN levothyroxine 75 mcg PO DAILY loperamide (Imodium A-D) 2 mg PO Q6H PRN lorazepam 0.5 mg PO BID PRN losartan-hydrochlorothiazide 100-25 mg 1 tab PO DAILY metformin 1,000 mg PO BID nitrofurantoin macrocrystal 100 mg PO BID ondansetron 8 mg PO Q8H PRN simvastatin 20 mg PO BEDTIME HPI Comments Details: Pleasant 69 year female who recently got diagnosed with left breast cancer and started chemotherapy. As part of workup she had echocardiography performed which showed preserved LV function but did show a moderate pericardial effusion without any tamponade physiology. After echo was reported I had a discussion with Dr. Reed about chemotherapy and given the fact that she had normal LV function we decided to proceed with chemotherapy. She is saying that she has been dizzy occasionally when she bends forward. Her blood pressure is low in the office and she is saying that her blood pressure runs at the same level for the last 6 months. She is taking 3 antihypertensive medications currently. No syncope. No shortness of breath or any other complaints. Denying any viral illness recently. She has hypothyroidism and takes levothyroxine. No recent TSH testing. 12/16/24: She returns for follow. She is undergoing chemotherapy. She has r equired blood transfusions. Complaining of fatigue tiredness. Occasional in his. No syncope. No chest discomfort. She has been taking medications regular. Previously her amlodipine was discontinued because of low blood pressure. She is taking losartan hydrochlorothiazide combination. She has not had any repeat echocardiography since July. Previously she was found to have moderate pericardial effusion. [facility] Medical History Anemia Breast cancer, left Left breast mass Hypertensive heart and chronic kidney disease without heart failure, with stage 1 through stage 4 chronic kidney disease, or unspecified chronic kidney disease Hypothyroidism, unspecified Nonalcoholic steatohepatitis (MCKENNA) Type 2 diabetes mellitus with diabetic neuropathy, unspecified Refractory anemia, 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 Morbid (severe) obesity due to excess calories Generalized anxiety disorder Fatty liver Chronic kidney disease, stage II (mild) Persistent microalbuminuria associated with type 2 diabetes mellitus Type 2 diabetes mellitus Surgical History H/O shoulder surgery Social History Household Members: Spouse Housing: House Are you a primary manager wound care to a significant other at home: No Do you presently have visiting nurse or other home services: No Patient Tobacco Use Status: Former Tobacco user Tobacco use type: Cigarette service: No Current occupational status: retired Gender identity: Female Review of Systems Const Denies chills, Denies fatigue, Denies fever(s), Denies frequent falls, Denies weakness, Denies weight gain and Denies weight loss ENT Denies dizziness Card Denies chest pain, Denies leg edema, Denies lightheadedness, Denies palpitations, Denies dyspnea and Denies dyspnea on exertion Resp Denies cough, Denies dyspnea and Denies dyspnea on exertion GI Denies hematochezia Musc Denies abnormal gait, Denies muscle weakness, Denies numbness, Denies radiating pain into limb and Denies tingling Neuro Denies abnormal gait, Denies dizziness, Denies frequent falls, Denies numbness, Denies tingling and Denies weakness Endo Denies fatigue and Denies palpitations Physical Exam Vital Signs: Last Vital Signs Pulse 69 12/16/24 11:14 BP 124/62 12/16/24 11:14 BMI result Body Mass Index 33.9 GENERAL APPEARANCE: in no acute distress, pleasant. NECK: no carotid bruit, no jugular venous distention. SKIN: no suspicious lesions, warm and dry. HEART: no murmurs, regular rate and rhythm. No friction rub. LUNGS: clear to auscultation bilaterally. ABDOMEN: soft, nontender. EXTREMITIES: no edema. PERIPHERAL PULSES: equal. NEUROLOGIC: No gross deficits, AAO X 3 Assessment & Plan Assessment & Plan (1) Pericardial effusion: Code(s): I31.39 - Other pericardial effusion (noninflammatory) Category: Medical Plan [age] year female with breast cancer who is on chemotherapy at this point and her pre chemo echocardiography has shown preserved LV function but moderate pericardial effusion was noted. No tamponade physiology was noted. She has been on chemo which she has been tolerating okay. She did have anemia and required blood transfusions. Some of her fatigue and dizziness is explained by anemia. Blood pressure appears to be good currently. She also has been getting diarrhea and I have advised her to stop the losartan hydrochlorothiazide combination medicine I am changing it to losartan only because thiazide diuretics may cause more dehydration with her chronic diarrhea. Currently does not appear to be symptomatic from pericardial effusion and does not have any physical signs of tamponade. I will repeat echocardiography to reassess LV function and to reassess the per icardial effusion. If pericardial effusion is large now then we may have to drain it. Hopefully it is stable or getting better. Thank you for allowing me to participate in the care of your patient. Please feel free to contact me if you have any questions. Orders: Orders CA echo transthoracic complete Today I31.39 - Other pericardial effusion (noninflammatory) Medications: New losartan 100 mg PO DAILY 90 tabs 3RF Coding Level of Care Code Est Pt Level 4 (40492) Diagnoses Pericardial effusion I31.39
== END 2024-12-16 11:50 | disposition home or self-care (01) ==
LOC: HO.HCS 10:54
PROVIDERS: PCP Internal Medicine; Visit Provider Internal Medicine Cardiovascular Disease
DX: I31.39 Other pericardial effusion (noninflammatory) (principal)
CPT/HCPCS: 99214

== ENCOUNTER → 2024-12-16 10:54 | Outpatient (BNVA) | payer MEDICARE, SELFPAY | PROVIDERS: PCP Internal Medicine; Visit Provider Internal Medicine Cardiovascular Disease | DX: I31.39 Other pericardial effusion (noninflammatory) (principal) | CPT/HCPCS: 99212 ==

== ENCOUNTER → 2024-12-18 10:45 | Outpatient (REF) | payer MEDICARE, SELFPAY ==
--- NOTE | 2024-12-18 10:47 | CA_ITS ---
Transthoracic Echocardiogram Patient (Last, First, Middle): Michelle Cueto, Gender: Female Date of : 1955 Age: 69 Procedure Date: 12/18/2024 Procedure Type: Transthoracic Echocardiogram Location: OP Height: 160.02 cm Weight: 83.92 kg BSA: 1.87 m2 Heart Rate: 73 bpm BP: 124 / 64 mmHg Supervisor [employer]: JORJE Referring MD: Esa Lopez MD Metal Engraver: Demetrio Patton MD Symptoms: I31.39 - Other pericardial effusion (noninflammatory) Study Quality: Fair ECG Rhythm: Sinus Conclusions: - 1. Small to moderate pericardial effusion without any evidence of tamponade 2. Normal LV ejection fraction of 65-70% with impaired relaxation filling pattern 3. Cardiac valvular Dopplers will in normal limits Findings Procedure Information The quality of the study was technically difficult. The study quality is limited by lung artifact. Left Ventricle Normal left ventricular size, thickness, and systolic function. The visually estimated ejection fraction is between 65-70%. Regional wall motion abnormalities can not be excluded due to suboptimal endocardial definition. Spectral Doppler is indicative of an impaired relaxation filling pattern. Right Ventricle Normal right ventricular cavity size. Atria The left atrium is likely dilated. Interatrial shunt cannot be excluded. The right atrium is normal in size. Aortic Valve The aortic valve was not well visualized. There is mild calcification of the aortic valve. There is no aortic valve stenosis. There is no aortic valve regurgitation. Mitral Valve The mitral valve was not well visualized. There is trace mitral valve regurgitation. There is no mitral valve stenosis. Pulmonic Valve The pulmonic valve was not well visualized. Tricuspid Valve The tricuspid valve was not well visualized. Tricuspid regurgitation envelope is inadequate for calculation of right ventricular systolic pressure. Normal right atrial pressure. Great Vessels The aorta was not well visualized. The pulmonary artery was not well visualized. There is no dilatation of the ascending aorta measuring 3.20 cm. Venous The inferior vena cava is normal in size. Pericardium/Pleural There is a moderate circumferential pericardial effusion. There are no definitive echocardiographic findings of tamponade physiology. The inferior vena cava is normal in size with preserved respiratory variability. No discernable variation of the mitral valve Doppler velocities with respiration. Prior Study Comparison No significant change compared to prior study dated: 09/15/2024. Measurements 2D Linear Measurements IVSd: 0.98 0.6-0.9/0.6-1.0 cm LVIDd: 4.07 3.9-5.3/4.2-5.9 cm LVIDd Index: 2.18 2.4-3.2/2.2-3.1 cm/m2 LVIDs: 2.72 2.0-3.6 cm LVPWd: 1.20 0.7-1.1 cm LA Diam: 4.40 2.7-3.8/3.0-4.0 cm LAIDs Index: 2.35 1.5-2.3 cm/m2 LV Mass: 183.91 67-162/88-224 g LV Mass Index: 98.35 43-95/49-115 g/m2 LVOT Diam: 2.20 3.0+(-)1.3 cm 2D Systolic Function EF 4C: 57.30 >55% EF 2C: 74.40 >55% EF BiP: 65.00 >55% Mitral Valve MV Pk E: 0.69 MV PK A: 0.94 MV Decel Time: 252.00 E/A: 0.70 E'Lateral: 5.22 E'Medial: 6.74 E/E' Med: 10.20 E/E' Lat: 13.10 PHT: 74.00 MVA PHT: 2.97 Decel Berrien: 2.72 Aortic Valve AoV Pk Rafael: 1.89 AoV Pk Grad: 14.00 JASMYN: 2.33 LVOT LVOT Pk Rafael: 1.16 LVOT Mn Rafael: 0.77 LVOT VTI: 0.22 LVOT Pk Grad: 5.00 LVOT Mn Grad: 3.00 LVOT Diam: 2.20 LVOT Area: 3.80 Diastolic Function MV Pk E: 0.69 MV Pk A: 0.94 E/A: 0.70 E'Medial: 6.74 E/E' Med: 10.20 E' Laterial: 5.22 E/E' Lat: 13.10 Right Ventricle TAPSE (mm): 17.50 TVS' Rafael: 17.70 Tricuspid Valve RA Press: 3.00 Great Vessels Aorta Sinus of Valsalva: 3.30 2.0-3.5 cm Ao Asc: 3.20 2.1-3.4 cm Ao Arch: 3.30 Pulmonary Veins Pulm Vein S/D 1.90 Pulmonary Valve PV Pk Rafael: 1.04 Peak PV Grad: 4.00 Updated in Other Vendor System with Status of Final Demetrio Patton MD electronically signed on 12/18/2024 3:40:19 PM with status of Final
--- OUTSIDE RECORDS SUMMARY | 2024-12-18 12:31 | XMS_ITS | Clinical Summary ---
Author Organization [facility] Address [address] [place] [id number] Phone Care Team Providers Care Fishery Division Chief Name Role Phone Josias Estrada MD Primary Care Provider [phone] Surgical History Surgery Date Site/Laterality Comments SHOULDER SURGERY PROCEDURE:SHOULDER SURGERY Medical History Medical History Date Comments Diabetes mellitus (CMS/HCC V24, CMS/HCC V28) DX:Diabetes mellitus (HCC) CKD (chronic kidney [...] Last Done Comments Breast Cancer Screening 1955 Colorectal Cancer Screening: Colonoscopy 1955 Diabetes: Annual GFR (Glomerular Filtration Rate) 1955 Diabetes: Annual Foot Exam 1966 Diabetes: Annual Retina Eye Exam 1966 DTaP,Tdap,and Td Vaccines (1 - Tdap) 08/19/1975 Pneumococcal Vaccine: 50+ Years (1 of 1 - PCV) 2006 RSV Immunization Adult Patients (1 - Risk 50-74 years 1-dose series) 2006 Zoster Vaccines (1 of 2) 2006 Cholesterol Screening (Lipid Panel) 03/21/2023 Falls Risk Assessment 03/21/2023 Hepatitis C Screening 03/21/2023 Osteoporosis Screening (Bone Density Screening) 03/21/2023 Social Influencers of Health Screening 03/21/2023 Medicare Annual Wellness Visit 07/18/2023 07/17/2022 Depression Screening 02/26/2024 Diabetes: Annual Urine Albumin-Creatinine Ratio (uACR) 08/13/2024 Diabetes: Blood Sugar Contro l Test (HGBA1C) 08/13/2024 COVID-19 Vaccine (3 - 2024-2 6 season) 2024 07/10/2020, 06/19/2020 Influenza Vaccine (#1) 2024 HIB Vaccines Aged [...] on patient's age to complete this topic Insurance MEDICARE [facility] Care Teams Fishery Division Chief Relationship Specialty Start Date End Date Josias Estrada MD [address] [place] [address] [address] [place], [place] PCP - General 04/13/22
--- OUTSIDE RECORDS SUMMARY | 2024-12-18 12:31 | XMS_ITS | Clinical Summary ---
Author Organization [facility] Address [address] [facility] [address] [place] [id number] Phone Care Team Providers Care Internet Sales Director Name Role Phone Josias Estrada MD Primary Care Provider + Francie Reed MD Unavailable [phone] Gisele Berger MD Unavailable [phone] Medications amLODIPine (NORVASC) 10 MG tablet Take [...] 2006 OSTEOPOROSIS SCREENING INITI AL (ONE-TIME) 2021 DIABETIC EYE EXAM 05/04/2024 INFLUENZA VACCINE (#1) 2024 COVID-19 VACCINE (3 - 2024-2 6 season) 2024 07/10/2020, 06/19/2020 BLOOD PRESSURE 11/04/2024 05/04/2024 RSV VACCINE (1 [...] Priority Date/Time Associated Diagnosis Comments OUTSIDE IMAGING 10/05/2024 from Last 3 Months Results * Outside Imaging Report Only (10/05/2024) us Scanning Interface Provider IMG XR CHEST Fani l Result from Last 3 Months Insurance MEDICARE PART A & B [facility] MEDICARE SUPPLEMENT MEDICARE PART A & [place] [address] [place] [address] MEDICARE SUPPLEMENT MEDICARE PART A & B [facility] MEDICARE SUPPLEMENT MEDICARE PART A & B MEDICARE SUPPLEMENT MEDICARE PART A & B [facility] MEDICARE SUPPLEMENT MEDICARE PART A & B [facility] MEDICARE SUPPLEMENT Care Teams Internet Sales Director Relationship Specialty Start Date End Date Josias Estrada MD [address] [address] PCP - General Internal Medicine 03/10/24 Francie Reed MD [address] [place] [phone] [email or web address] Referring Physician Internal Medicine 03/10/24 Gisele Berger MD [address] [place] [address] [id number] Division [place] [address] [email or web address] Consulting Provider Hematology 05/04/24 Additional Source Comments The information contained in this document represents components of the legal health record. It is not the complete legal health record.[facility]
--- OUTSIDE RECORDS SUMMARY | 2024-12-18 12:31 | XMS_ITS | Clinical Summary ---
Author Organization [facility] Address [address] [place] [address] Care Team Providers Care Automotive Service Professional Name Role Phone Josias Estrada MD Primary Care Provider [phone] Allergies Active Allergy Reactions Criticality Noted Date [...] - PCV) 2021 COVID-19 Vaccine (3 - 2024-2 6 season) 2024 07/10/2020, 06/19/2020 Influenza Vaccine (#1) 2024 RSV Adult > 60+ Yrs or (1 - 1-dose 75+ series) 08/19/2031 Hepatitis B Vaccines Aged Out No long er eligible based on patient's age to complete this topic RSV Ped < 20 months Aged Out No longe r eligible based on patient's age to complete this topic Care Teams Automotive Service Professional Relationship Specialty Start Date End Date Josias Estrada MD [address] [place] [address] [address] [place] [address] PCP - General Geriatric Medicine 04/13/22
== END ==
LOC: HO.CARD 10:45
PROVIDERS: PCP Internal Medicine; Visit Provider Internal Medicine Cardiovascular Disease
DX: I31.39 Other pericardial effusion (noninflammatory) (principal)
CPT/HCPCS: 93306

== ENCOUNTER → 2024-12-18 10:47 | Outpatient (BNV) | payer MEDICARE, SELFPAY | PROVIDERS: PCP Internal Medicine; Visit Provider Internal Medicine Cardiovascular Disease | DX: I31.39 Other pericardial effusion (noninflammatory) (principal) | CPT/HCPCS: 93306 ==

== ENCOUNTER 2025-02-04 09:45 | Outpatient (AMB) | payer MEDICARE, SELFPAY ==
--- NOTE | 2025-02-04 09:49 | A.OFFVIS_ITS ---
Vital Signs 02/04/25 09:57 Height 5 ft 2 in Weight 181 lb BMI 33.1 BP 145/65 H Blood Pressure Location Rt brachial Position Sitting Pulse 84 Intake Visit Reasons: 6 month breast exam Intake Note: Patient presents for six month breast examination assessment. Pt c/o; no breast complaints . 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 This was done last 07/28/2024. She is therefore undergoing adjuvant chemotherapy. 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 She says she has been transfused 7 times already She has not had radiation treatment yet because she has not finished chemotherapy. She does admit to having weakness chemotherapy. She has had leukopenia as well. [facility] Medical History Anemia Breast cancer, left Left breast mass Hypertensive heart and chronic kidney disease without heart failure, with stage 1 through stage 4 chronic kidney disease, or unspecified chronic kidney disease Hypothyroidism, unspecified Nonalcoholic steatohepatitis (MCKENNA) Type 2 diabetes mellitus with diabetic neuropathy, unspecified Refractory anemia, 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 Morbid (severe) obesity due to excess calories Generalized anxiety disorder Fatty liver Chronic kidney disease, stage II (mild) Persistent microalbuminuria associated with type 2 diabetes mellitus Type 2 diabetes mellitus Surgical History H/O shoulder surgery Social History Household Members: Spouse Housing: House Are you a primary resident care coordinator to a significant other at home: No Do you presently have visiting nurse or other home services: No Patient Tobacco Use Status: Former Tobacco user Tobacco use type: Cigarette service: No Current occupational status: retired Gender identity: Female Review of Systems Const Denies chills, Reports fatigue and Denies fever(s) Card Denies chest pain Resp Denies cough GI Denies abdominal pain Denies difficulty voiding Endo Reports fatigue Physical Exam Vital Signs: Last Vital Signs Pulse 84 02/04/25 09:57 BP 145/65 H 02/04/25 09:57 BMI result Body Mass Index 33.1 Const General: comfortable and no acute distress Chest Other: Lumpectomy site well healed, no palpable masses on both breasts, no axillary lymphadenopathy Resp Effort & Inspection: normal respiratory effort Cardio Rate: regular rate GI Palpation (GI): Soft to palpation, not firm and nontender Assessment & Plan Assessment & Plan (1) Breast cancer, left: Code(s): C50.912 - Malignant neoplasm of unspecified site of left female breast Category: Medical Plan: She had a T2 N0 invasive ductal carcinoma, triple negative. She therefore had t o undergo adjuvant chemotherapy. She has had problems with Taxol because of hemolytic anemia and has been requiring transfusions. She also has had leukopenia. She has 1 more cycle of chemotherapy. She then will undergo radiation therapy I will see her again in the office in Jun, 2025. She should have her follow up mammogram by then . Physical exam currently does not suggest any recurrence or residual tumor. There is no axillary lymphadenopathy. Coding Level of Care Code Est Pt Level 3 (35722) Diagnoses Breast cancer, left C50.912
[2025-02-04 09:57] VITALS: BP 145/65; PULSE 84; BMI 33.1
== END 2025-02-04 10:19 | disposition home or self-care (01) ==
LOC: HO.HGS 09:45
PROVIDERS: PCP Internal Medicine; Visit Provider Surgery
DX: C50.912 Malignant neoplasm of unspecified site of left female breast (principal)
CPT/HCPCS: 99213

== ENCOUNTER → 2025-02-04 09:45 | Outpatient (BNVA) | payer MEDICARE, SELFPAY | PROVIDERS: PCP Internal Medicine; Visit Provider Surgery | DX: Z12.39 Encounter for other screening for malignant neoplasm of breast (principal); C50.912 Malignant neoplasm of unspecified site of left female breast | CPT/HCPCS: 99212 ==